=== PATIENT | male | born 1970 ===

== ENCOUNTER 2017-01-10 09:44 | Day surgery (SDC) | payer SELFPAY ==
[2016-05-20 11:52] VITALS: BMI 31.8
[2017-01-10] MEDS ORDERED: Midazolam 2 MG/2 ML VIAL ONE (12:17)
[2017-01-10] MEDS ORDERED: Propofol 10 mg/ml Inj (20 ML) ONE (12:18)
[2017-01-10] MEDS ORDERED: Lidocaine 2% MPF (5 ml) Inj ONE (12:23)
[2017-01-10] MEDS ORDERED: Lactated Ringer's 500 ML IV ONE (12:25)
[2017-01-10 13:00] VITALS: BP 121/69; PULSE 72; RESP 22; TEMP 98; O2SAT 96
== END 2017-01-10 13:00 | disposition home or self-care (01) ==
LOC: H.ENDO 09:44
PROVIDERS: ATTEND Internal Medicine Gastroenterology
DX: K21.9 Gastro-esophageal reflux disease without esophagitis (principal); K25.7 Chronic gastric ulcer without hemorrhage or perforation; K25.9 Gastric ulcer, unspecified as acute or chronic, without hemorrhage or perforation; K29.70 Gastritis, unspecified, without bleeding
CPT/HCPCS: 43239; 88305; J2250; J2704; J7120

== ENCOUNTER 2017-04-02 09:07 | Inpatient (IN) | payer MEDICAID, SELFPAY ==
[2017-04-02 09:16] VITALS: BMI 37.1
[2017-04-02] MEDS ORDERED: Albuterol-Ipratrop 3 mg / 0.5 (3 ml) UD ONE (09:20)
[2017-04-02] MEDS ORDERED: Albuterol-Ipratrop 3 mg / 0.5 (3 ml) UD IH STA (09:21)
[2017-04-02] MEDS ORDERED: Albuterol-Ipratrop 3 mg / 0.5 (3 ml) UD INH STA ×2 (09:21)
--- NOTE | 2017-04-02 09:22 | ED PDOC ---
HPI: General Adult Time Seen by Provider: 04/02/17 09:19 Chief Complaint (Provider): Dyspnea History Per: Patient History/Exam Limitations: no limitations Onset/Duration Of Symptoms: Days Have you had recent travel within the past 21 days to any of the following countries: [place], [place], [place] or [place]?: No Current Symptoms Are (Timing): Still Present Additional Complaint(s): Pt. with dyspnea last night that went away. Started again today morning. No chest pain, leg pain, fever, cough, congestion. No headaches. No weakness. Has had similar in 2x in the past from exertion and went away on its own. No numbness, tingles. No abd pain. No long distance travel or hormone tx. PCP: [facility] Past Medical History Reviewed: Historical Data, Nursing Documentation, Vital Signs Vital Signs: Last Vital Signs Temp 98 F 04/02/17 09:25 Pulse 127 H 04/02/17 09:30 Resp 25 H 04/02/17 09:45 BP 163/104 H 04/02/17 09:30 Pulse Ox 92 L 04/02/17 09:45 - Medical History PMH: Gastritis Denies: Chronic Kidney Disease - Surgical History Surgical History: Appendectomy, Cholecystectomy, Endoscopy - Family History Family History: States: Unknown Family Hx - Social History Current smoker - smoking cessation education provided: No Alcohol: None Drugs: Denies - Home Medications Home Medications: Ambulatory Orders Medication Instructions Recorded No Known Home Med 01/10/17 - Allergies Allergies/Adverse Reactions: Allergies Allergy/AdvReac Type Severity Reaction Status Date / Time naproxen AdvReac DIARRHEA Verified 04/02/17 09:25 Review of Systems ROS Statement: Except As Marked, All Systems Reviewed And Found Negative Respiratory: Positive for: Shortness of Breath, SOB with Exertion Physical Exam - Reviewed Nursing Documentation Reviewed: Yes Vital Signs Reviewed: Yes - Physical Exam Appears: Positive for: Uncomfortable Head Exam: Positive for: ATRAUMATIC, NORMAL INSPECTION, NORMOCEPHALIC Skin: Positive for: Normal Color, Warm, DRY Eye Exam: Positive for: EOMI, Normal appearance, PERRL ENT: Positive for: Normal ENT Inspection Neck: Positive for: Normal, Painless ROM Cardiovascular/Chest: Positive for: Chest Non Tender, Tachycardia. Negative for : Edema Respiratory: Positive for: Decreased Breath Sounds Gastrointestinal/Abdominal: Positive for: Normal Exam, Bowel Sounds, Soft. Negative for: Tenderness Back: Positive for: Normal Inspection. Negative for: L CVA Tenderness, R CVA Tenderness Extremity: Positive for: Normal ROM. Negative for: Tenderness, Pedal Edema Neurologic/Psych: Positive for: Alert, manager target II-XII, Oriented. Negative for: Motor/Sensory Deficits - Laboratory Results Result Diagrams: 04/02/17 09:30 04/02/17 09:30 - ECG ECG: Positive for: Interpreted By Me, Viewed By Me ECG Rhythm: Positive for: Normal QRS, Sinus Tachycardia, Nonspecific Changes - Radiology X-Ray: Interpreted by Me, Viewed By Me X-Ray Interpretation: Other (vascular congestion) - Progress ED Course And Treament: 1229: Stable. AAOx3. Breathing better. Will consider clinical CHF exacerbation. Will admit tele. Sats maintained on nasal cannula. Spoke with [facility] resident, will admit. - Critical Care Total Time (In Min): 30 Documented Critical Care: Time excludes all time spent performint seperately billable procedures Disposition - Clinical Impression Clinical Impression: CHF exacerbation - Patient ED Disposition Is Patient to be Admitted: Yes Counseled Patient/Family Regarding: Studies Performed, Diagnosis - Disposition Disposition Time: 12:31 Condition: FAIR - Pt Status Changed To: Hospital Disposition Of: Inpatient - Admit Certification Admit to Inpatient:: After my assessment, the patient will require hospitalization for at least two midnights. This is because of the severity of symptoms shown, intensity of services needed, and/or the medical risk in this patient being treated as an outpatient. - POA Present On Arrival: None
[2017-04-02] MEDS ORDERED: Sodium Chloride 0.9% 500 ML IV SCH (09:30)
[2017-04-02 09:35] LABS: ABG ALLEN TEST YES; ARTERIAL BLOOD GAS PH 7.42 (7.35-7.45); ARTERIAL BLOOD GAS PO2 67 mm/Hg (80-100)
[2017-04-02 09:39] LABS: BASO % 0.2 % (0.0-2.0); EOS # 0.1 K/uL (0.0-0.7); EOS % 0.6 % (0.0-4.0); HEMATOCRIT 50.3 % (35.0-51.0); LYMPH # 0.5 K/uL (1.0-4.3); LYMPH % 4.8 % (20.0-40.0); MEAN CELL VOLUME 85.4 fl (80.0-94.0); MEAN CORPUSCULAR HEMOGLOBIN 28.1 pg (27.0-31.0); MEAN CORPUSCULAR HGB CONC 32.9 g/dL (33.0-37.0); MEAN PLATELET VOLUME 8.7 fl (7.2-11.7); MONO # 0.7 K/uL (0.0-0.8); MONO % 7.8 % (0.0-10.0); NEUT # 8.3 K/uL (1.8-7.0); NEUT % 86.6 % (50.0-75.0); NRBC % 0.1 % (0.0-0.0); PLATELET COUNT 96 K/uL (130-400); RED CELL DISTRIBUTION WIDTH 15.8 % (11.5-14.5); WHITE BLOOD COUNT 9.5 K/uL (4.8-10.8)
[2017-04-02 10:12] LABS: PARTIAL THROMBOPLASTIN TIME 32.9 Seconds (25.6-37.1)
[2017-04-02 10:17] LABS: ALB/GLOB RATIO 1.5 (1.0-2.1); ALKALINE PHOSPHATASE 82 U/L (38-126); ALT/SGPT 109 U/L (21-72); AST/SGOT 44 U/L (17-59); BILIRUBIN,TOTAL 0.6 mg/dl (0.2-1.3); BLOOD UREA NITROGEN 16 mg/dl (9-20); CALCIUM 8.8 mg/dL (8.4-10.2); CARBON DIOXIDE 24 mmol/L (22-30); CHLORIDE 103 mmol/L (98-107); GFR AFRICAN-AMERICAN > 60; GLUCOSE,RANDOM 111 mg/dL (75-110); MAGNESIUM 2.1 MG/DL (1.6-2.3); PHOSPHOROUS 2.3 mg/dl (2.5-4.5); POTASSIUM 3.9 MMOL/L (3.6-5.0); SODIUM 134 mmol/l (132-148); TOTAL PROTEIN 7.8 G/DL (6.3-8.2)
[2017-04-02] MEDS ORDERED: Iodixanol 320 MG/ML 100 ML BOTTLE IV ONE (11:12)
[2017-04-02] MEDS ORDERED: Sodium Chloride 0.9% 50 ML IV ONE (11:13)
--- NOTE | 2017-04-02 11:31 | RAD ---
HISTORY: Sepsis Patient COMPARISON: No prior. FINDINGS: LUNGS: Prominence of pulmonary vasculature may be secondary to AP technique and/or pulmonary vascular congestion. PLEURA: No significant pleural effusion identified, no pneumothorax apparent. CARDIOVASCULAR: Normal. OSSEOUS STRUCTURES: No significant abnormalities. VISUALIZED UPPER ABDOMEN: Normal. OTHER FINDINGS: None. IMPRESSION: Prominence of the pulmonary vasculature may be secondary to AP technique and/or pulmonary vascular congestion. No focal consolidation or pleural effusion.
--- NOTE | 2017-04-02 12:25 | CT ---
PROCEDURE: CT Chest with contrast (Pulmonary Angiogram) HISTORY: chest pain COMPARISON: None available. TECHNIQUE: Axial computed tomography images were obtained of the chest in the pulmonary arterial phase of enhancement. Coronal and sagittal reformatted images were created and reviewed. Intravenous contrast dose: 90 mL Visipaque 320 Radiation dose: Total exam DLP = 412.7 mGy-cm. This CT exam was performed using one or more of the following dose reduction techniques: Automated exposure control, adjustment of the mA and/or kV according to patient size, and/or use of iterative reconstruction technique. FINDINGS: PULMONARY ARTERIES: Unremarkable. No pulmonary embolism. AORTA: No acute findings. No thoracic aortic aneurysm. Common origin of the brachiocephalic and left common carotid arteries. LUNGS: Focal areas of lingula, left upper right upper lobe subsegmental atelectasis. No nodule, mass or pulmonary consolidation. PLEURAL SPACES: Unremarkable. No effusion or pneuomothorax. HEART: Unremarkable. No cardiomegaly. No significant pericardial effusion. LYMPH NODES: No lymphadenopathy. BONES, CHEST WALL: Unremarkable. No fracture or destructive lesion OTHER FINDINGS: Unremarkable. IMPRESSION: Unremarkable CT pulmonary angiogram. No pulmonary embolus.
[2017-04-02 12:40] LABS: EOSINOPHIL 1 % (0-7); NEUTROPHIL 79 % (42-75); TOTAL CELLS COUNTED 100
[2017-04-02 12:41] LABS: LARGE PLATELETS PRESENT
--- NOTE | 2017-04-02 14:08 | CP.PCM.HP ---
<Marcy Figueroa - Last Filed: 04/02/17 17:40> History of Present Illness - History of Present Illness History of Present Illness: 46 yo ,m, PMhx/o Migraine, Obesity, GERD, Gastric Ulcer presents to ED c/o sudden SOB started today 1 am while sleeping at home associated with wheezing, chest tightness, headache and fever 101. Patient reports SOB on exertion started 3 months ago. Patient states that he is only able to walk 15 minutes and he has to stop due to SOB and also gets SOB when climbing stairs about 3 steps. He also reports productive cough with small amount yellowish expectoration for the last 2 months, sometimes white expectoration. Patient also reports being sleeping with 3 pillows for the last 3 years. He denies PND episodes before, orthopnea, pedal edema, palpitation, runny nose, nasal congestion, sick contact, recent travel, Hx/o CAD, angina. Patient reports gaining 40 lbs for the last months. Patient reports that consulted Dr for SOB and was prescribed a inhaler pump that he never used and sleep study test that he did not go to do. PMD: WVC PMHx: Migraine, Obesity, GERD, Gastric Ulcer Allergies: Naproxen "gastritis" MEds: denies Family Hx: Mom (Unspecified Thyroid Disease), Dad (Prostate CA), GranMom ( Unspecified CA, DM 2), Daughters x 2 (Healthy) PSurghx: Cholecystectomy PShx: +ETOH 12 beers occs on weekends x 22 years. Quit 1 year ago, former smoker for 20 years, 1 PPD/week. Quit 6 months ago. no rect drugs. Ed Course: low o2 sat 92, HR: 127 Labs: Ekg, sinus tachy, trop neg, probnp normal. PE: B/L lungs diminished breath sound. expiratory wheezing s/p meds. Imaging: CXR: Prominence of the pulmonary vaculature may be secondary to AP techinique and /or pulmonary vascular congestion. no focal consolidation of pleural effusion. CT chest: unremarkable CT pulmonary angiogram. no pulmmonary embolus. Meds: Duoneb,methylprednisone, iv fluids Present on Admission - Present on Admission Any Indicators Present on Admission: No History of DVT/PE: No History of Uncontrolled Diabetes: No Review of Systems - Constitutional Constitutional: As Per HPI - Cardiovascular Cardiovascular: As Per HPI - Respiratory Respiratory: As Per HPI, Dyspnea, Dyspnea on Exertion - Gastrointestinal Gastrointestinal: As Per HPI - Genitourinary Genitourinary: As Per HPI - Musculoskeletal Musculoskeletal: As Per HPI - Neurological Neurological: As Per HPI Past Patient History - Infectious Disease Hx of Infectious Diseases: None - Past Medical History & Family History Past Medical History?: No - Past Social History Alcohol: None Drugs: Denies - CARDIAC Hx Cardiac Disorders: No - PULMONARY Hx Respiratory Disorders: No - NEUROLOGICAL Hx Neurological Disorder: No - HEENT Hx HEENT Problems: No - RENAL Hx Chronic Kidney Disease: No - ENDOCRINE/METABOLIC Hx Endocrine Disorders: No - HEMATOLOGICAL/ONCOLOGICAL Hx Blood Disorders: No - INTEGUMENTARY Hx Dermatological Problems: No - MUSCULOSKELETAL/RHEUMATOLOGICAL Hx Falls: No - GASTROINTESTINAL Hx Gastritis: Yes - GENITOURINARY/GYNECOLOGICAL Hx Genitourinary Disorders: No - PSYCHIATRIC Hx Psychophysiologic Disorder: No Hx Substance Use: No - SURGICAL HISTORY Hx Appendectomy: Yes Hx Cholecystectomy: Yes - ANESTHESIA Hx Anesthesia: Yes Hx Anesthesia Reactions: No Hx Malignant Hyperthermia: No Meds Allergies/Adverse Reactions: Allergies Allergy/AdvReac Type Severity Reaction Status Date / Time naproxen AdvReac DIARRHEA Verified 04/02/17 09:25 Physical Exam - Constitutional Appears: In Acute Distress Additional comments: due to SOB - Head Exam Head Exam: ATRAUMATIC, NORMOCEPHALIC - Eye Exam Eye Exam: Normal appearance - Neck Exam Neck exam: Positive for: Normal Inspection - Respiratory Exam Respiratory Exam: Decreased Breath Sounds. absent: Wheezes Additional comments: on Bipap . B/L global diminished breath sounds with scattered expiratory wheezing b/l lungs s/p meds. - Cardiovascular Exam Cardiovascular Exam: Tachycardia, +S1, +S2 - GI/Abdominal Exam GI & Abdominal Exam: Normal Bowel Sounds, Soft. absent: Guarding - Extremities Exam Extremities exam: Positive for: normal inspection. Negative for: calf tenderness, pedal edema - Back Exam Back exam: NORMAL INSPECTION - Neurological Exam Neurological exam: Alert, Oriented x3 - Psychiatric Exam Psychiatric exam: Normal Affect - Skin Skin Exam: Intact Results - Vital Signs Recent Vital Signs: Last Vital Signs Temp 99.8 F H 04/02/17 12:27 Pulse 105 H 04/02/17 13:50 Resp 26 H 04/02/17 12:27 BP 138/85 04/02/17 12:49 Pulse Ox 96 04/02/17 12:27 - Labs Result Diagrams: 04/02/17 09:30 04/02/17 09:30 Labs: Laboratory Results - last 24 hr 04/02/17 04/02/17 04/02/17 09:26 09:30 09:30 WBC 9.5 RBC 5.89 Hgb 16.5 D Hct 50.3 MCV 85.4 D MCH 28.1 MCHC 32.9 L RDW 15.8 H Plt Count 96 L D MPV 8.7 Neut % (Auto) 86.6 H Lymph % (Auto) 4.8 L [place] % (Auto) 7.8 Eos % (Auto) 0.6 Baso % (Auto) 0.2 Neut # 8.3 H Lymph # 0.5 L [place] # 0.7 Eos # 0.1 Baso # 0.0 Neutrophils % (Manual) 79 H Band Neutrophils % 2 Lymphocytes % (Manual) 9 L Monocytes % (Manual) 9 Eosinophils % (Manual) 1 Platelet Estimate Slightly decreased L Large Platelets Present Hypochromasia (manual) Slight PT INR APTT pCO2 33 L pO2 67 L HCO3 23.0 ABG pH 7.42 ABG Total CO2 22.4 ABG O2 Saturation 97.1 ABG Base Excess -2.3 L Johnson Test Yes ABG Potassium 4.2 A-a O2 Difference 227.0 Sodium 142.0 134 Chloride 109.0 H 103 Glucose 122 H Lactate 0.9 FiO2 47.0 Potassium 3.9 Carbon Dioxide 24 Anion Gap 11 BUN 16 Creatinine 1.0 Est GFR ( Amer) > 60 Est GFR (Non-Af Amer) > 60 Random Glucose 111 H Calcium 8.8 Phosphorus 2.3 L Magnesium 2.1 Total Bilirubin 0.6 AST 44 ALT 109 H D Alkaline Phosphatase 82 Troponin I < 0.0120 NT-Pro-B Natriuret Pep 33.0 Total Protein 7.8 Albumin 4.7 Globulin 3.1 Albumin/Globulin Ratio 1.5 Arterial Blood Potassium 4.2 04/02/17 09:30 WBC RBC Hgb Hct MCV MCH MCHC RDW Plt Count MPV Neut % (Auto) Lymph % (Auto) [place] % (Auto) Eos % (Auto) Baso % (Auto) Neut # Lymph # [place] # Eos # Baso # Neutrophils % (Manual) Band Neutrophils % Lymphocytes % (Manual) Monocytes % (Manual) Eosinophils % (Manual) Platelet Estimate Large Platelets Hypochromasia (manual) PT 12.8 INR 1.2 APTT 32.9 pCO2 pO2 HCO3 ABG pH ABG Total CO2 ABG O2 Saturation ABG Base Excess Johnson Test ABG Potassium A-a O2 Difference Sodium Chloride Glucose Lactate FiO2 Potassium Carbon Dioxide Anion Gap BUN Creatinine Est GFR ( Amer) Est GFR (Non-Af Amer) Random Glucose Calcium Phosphorus Magnesium Total Bilirubin AST ALT Alkaline Phosphatase Troponin I NT-Pro-B Natriuret Pep Total Protein Albumin Globulin Albumin/Globulin Ratio Arterial Blood Potassium Assessment & Plan - Assessment and Plan (Free Text) Plan: 46 yo ,m, PMhx/o Migraine, Obesity, GERD, Gastric Ulcer admitted to ICU for respiratory distress secondary to new onset of COPD exacerbation vs CHF Assessment/Plan 1) respiratory distress secondary to new onset COPD -CXR: Prominence of the pulmonary vasculature may be secondary to AP technique and /or pulmonary vascular congestion. no focal consolidation of pleural effusion. CT chest: unremarkable CT pulmonary angiogram. no pulmmonary embolus. -Admit ICU -Bipap -NPO, iv fluids maintenance -s/p metylprednisone 125 mg iv -duoneb q 4h -Ceftriazone, Azythromycin -Echo stat -ICU consult appreciated -Cardiology consult suggested 2) COPD exacerbation -Admit ICU -Bipap -NPO -s/p metylprednisone 125 mg iv -duoneb q 4h -Ceftriazone, Azythromycin 3) Chest pain -to r/o ACS, PE -EKG: old myocardial infarction,sinus tachycardia -troponin x 1 neg -f/u troponin x 2 -ProBNP normal -d dimer high, f/u lower limbs venous US -repeat EKG in 8 hours. -TSH 4) Thromopcytopenia -plt 96 -f/u CBC, cmp 5) Prediabetes -chornic -hgb a1c 5.7 11/2016 6) DVT prophylaxis -SCD due to thrombocytopenia <Shoshana Nguyễn - Last Filed: 04/03/17 08:13> Results - Vital Signs Recent Vital Signs: Last Vital Signs Temp 98.3 F 04/03/17 06:00 Pulse 91 H 04/03/17 06:00 Resp 20 04/03/17 06:00 BP 156/93 H 04/03/17 06:00 Pulse Ox 96 04/03/17 06:00 - Labs Result Diagrams: 04/03/17 04:40 04/03/17 04:40 Labs: Laboratory Results - last 24 hr 04/02/17 04/02/17 04/02/17 09:26 09:30 09:30 WBC 9.5 RBC 5.89 Hgb 16.5 D Hct 50.3 MCV 85.4 D MCH 28.1 MCHC 32.9 L RDW 15.8 H Plt Count 96 L D MPV 8.7 Neut % (Auto) 86.6 H Lymph % (Auto) 4.8 L [place] % (Auto) 7.8 Eos % (Auto) 0.6 Baso % (Auto) 0.2 Neut # 8.3 H Lymph # 0.5 L [place] # 0.7 Eos # 0.1 Baso # 0.0 Neutrophils % (Manual) 79 H Band Neutrophils % 2 Lymphocytes % (Manual) 9 L Monocytes % (Manual) 9 Eosinophils % (Manual) 1 Platelet Estimate Slightly decreased L Large Platelets Present Hypochromasia (manual) Slight PT INR APTT D-Dimer, Quantitative pCO2 33 L pO2 67 L HCO3 23.0 ABG pH 7.42 ABG Total CO2 22.4 ABG O2 Saturation 97.1 ABG Base Excess -2.3 L Johnson Test Yes ABG Potassium 4.2 A-a O2 Difference 227.0 Sodium 142.0 134 Chloride 109.0 H 103 Glucose 122 H Lactate 0.9 FiO2 47.0 Potassium 3.9 Carbon Dioxide 24 Anion Gap 11 BUN 16 Creatinine 1.0 Est GFR ( Amer) > 60 Est GFR (Non-Af Amer) > 60 Random Glucose 111 H Calcium 8.8 Phosphorus 2.3 L Magnesium 2.1 Total Bilirubin 0.6 AST 44 ALT 109 H D Alkaline Phosphatase 82 Total Creatine Kinase Troponin I < 0.0120 C-React Prot High Sens NT-Pro-B Natriuret Pep 33.0 Total Protein 7.8 Albumin 4.7 Globulin 3.1 Albumin/Globulin Ratio 1.5 TSH 3rd Generation Arterial Blood Potassium 4.2 Urine Color Urine Clarity Urine pH Ur Specific [place] Urine Protein Urine Glucose (UA) Urine Ketones Urine Blood Urine Nitrate Urine Bilirubin Urine Urobilinogen Ur Leukocyte Esterase Urine RBC (Auto) Urine Microscopic WBC Ur Squamous Epith Cells 04/02/17 04/02/17 04/02/17 09:30 14:20 14:30 WBC RBC Hgb Hct MCV MCH MCHC RDW Plt Count MPV Neut % (Auto) Lymph % (Auto) [place] % (Auto) Eos % (Auto) Baso % (Auto) Neut # Lymph # [place] # Eos # Baso # Neutrophils % (Manual) Band Neutrophils % Lymphocytes % (Manual) Monocytes % (Manual) Eosinophils % (Manual) Platelet Estimate Large Platelets Hypochromasia (manual) PT 12.8 INR 1.2 APTT 32.9 D-Dimer, Quantitative 279 H pCO2 pO2 HCO3 ABG pH ABG Total CO2 ABG O2 Saturation ABG Base Excess Johnson Test ABG Potassium A-a O2 Difference Sodium Chloride Glucose Lactate FiO2 Potassium Carbon Dioxide Anion Gap BUN Creatinine Est GFR ( Amer) Est GFR (Non-Af Amer) Random Glucose Calcium Phosphorus Magnesium Total Bilirubin AST ALT Alkaline Phosphatase Total Creatine Kinase Troponin I C-React Prot High Sens NT-Pro-B Natriuret Pep Total Protein Albumin Globulin Albumin/Globulin Ratio TSH 3rd Generation Arterial Blood Potassium Urine Color Straw Urine Clarity Clear Urine pH 6.0 Ur Specific [place] 1.015 Urine Protein Negative Urine Glucose (UA) Neg Urine Ketones Trace Urine Blood Negative Urine Nitrate Negative Urine Bilirubin Negative Urine Urobilinogen 0.2-1.0 Ur Leukocyte Esterase Neg Urine RBC (Auto) < 1 Urine Microscopic WBC < 1 Ur Squamous Epith Cells < 1 04/02/17 04/02/17 04/02/17 14:30 14:30 22:32 WBC RBC Hgb Hct MCV MCH MCHC RDW Plt Count MPV Neut % (Auto) Lymph % (Auto) [place] % (Auto) Eos % (Auto) Baso % (Auto) Neut # Lymph # [place] # Eos # Baso # Neutrophils % (Manual) Band Neutrophils % Lymphocytes % (Manual) Monocytes % (Manual) Eosinophils % (Manual) Platelet Estimate Large Platelets Hypochromasia (manual) PT INR APTT D-Dimer, Quantitative pCO2 pO2 HCO3 ABG pH ABG Total CO2 ABG O2 Saturation ABG Base Excess Johnson Test ABG Potassium A-a O2 Difference Sodium Chloride Glucose Lactate FiO2 Potassium Carbon Dioxide Anion Gap BUN Creatinine Est GFR ( Amer) Est GFR (Non-Af Amer) Random Glucose Calcium Phosphorus Magnesium Total Bilirubin AST ALT Alkaline Phosphatase Total Creatine Kinase 204 H Troponin I < 0.0120 < 0.0120 C-React Prot High Sens > 15.00 H NT-Pro-B Natriuret Pep 68.4 Total Protein Albumin Globulin Albumin/Globulin Ratio TSH 3rd Generation Arterial Blood Potassium Urine Color Urine Clarity Urine pH Ur Specific [place] Urine Protein Urine Glucose (UA) Urine Ketones Urine Blood Urine Nitrate Urine Bilirubin Urine Urobilinogen Ur Leukocyte Esterase Urine RBC (Auto) Urine Microscopic WBC Ur Squamous Epith Cells 04/03/17 04/03/17 04:40 04:40 WBC 7.2 RBC 5.66 Hgb 15.8 Hct 48.4 MCV 85.5 MCH 28.0 MCHC 32.7 L RDW 16.0 H Plt Count 103 L MPV Neut % (Auto) Lymph % (Auto) [place] % (Auto) Eos % (Auto) Baso % (Auto) Neut # Lymph # [place] # Eos # Baso # Neutrophils % (Manual) Band Neutrophils % Lymphocytes % (Manual) Monocytes % (Manual) Eosinophils % (Manual) Platelet Estimate Large Platelets Hypochromasia (manual) PT INR APTT D-Dimer, Quantitative pCO2 pO2 HCO3 ABG pH ABG Total CO2 ABG O2 Saturation ABG Base Excess Johnson Test ABG Potassium A-a O2 Difference Sodium 142 Chloride 107 Glucose Lactate FiO2 Potassium 4.1 Carbon Dioxide 24 Anion Gap 15 BUN 18 Creatinine 0.8 Est GFR ( Amer) > 60 Est GFR (Non-Af Amer) > 60 Random Glucose 154 H Calcium 8.7 Phosphorus Magnesium Total Bilirubin 0.3 AST 52 ALT 114 H Alkaline Phosphatase 64 Total Creatine Kinase Troponin I < 0.0120 C-React Prot High Sens NT-Pro-B Natriuret Pep Total Protein 7.2 Albumin 4.2 Globulin 3.0 Albumin/Globulin Ratio 1.4 TSH 3rd Generation 0.23 L Arterial Blood Potassium Urine Color Urine Clarity Urine pH Ur Specific [place] Urine Protein Urine Glucose (UA) Urine Ketones Urine Blood Urine Nitrate Urine Bilirubin Urine Urobilinogen Ur Leukocyte Esterase Urine RBC (Auto) Urine Microscopic WBC Ur Squamous Epith Cells Attending/Attestation - Attestation Notes (Text): 04/03/17 08:12 ATTENDING NOTE ATTESTATION CHART REVIEWED. CASE DISCUSSED AT LENGTH WITH RESIDENT. PRESENTATION SUGGESTIVE OF COPD EXACERABATION. PATIENT ADMITTED TO ICU. STARTED ON SOLUMEDROL, ANTIBIOTICS, ALBUTEROL/ATROVENT NEBS. AGREE WITH PLAN.
[2017-04-02 14:33] LABS: RBC URINE < 1 /hpf (0-3); URINE BILIRUBIN NEGATIVE (NEGATIVE); URINE BLOOD NEGATIVE (NEGATIVE); URINE COLOR STRAW (YELLOW); URINE GLUCOSE (UA) NEG (Normal); URINE KETONE TRACE mg/dL (NEGATIVE); URINE LEUKOCYTE ESTERASE NEG Leu/uL (Negative); URINE PROTEIN NEGATIVE (NEGATIVE); URINE UROBILINOGEN 0.2-1.0 mg/dL (0.2-1.0); WBC URINE < 1 /hpf (0-5)
[2017-04-02] MEDS ORDERED: Albuterol-Ipratrop 3 mg / 0.5 (3 ml) UD INH PRN (14:51)
--- NOTE | 2017-04-02 14:58 | CP.PCM.CON ---
History of Present Illness - History of Present Illness History of Present Illness: 46 y/o male with pmx of smoking tobacco "[place]" for more than 10 years, with h /o obesity , pre-diabetes and working as a recycler forklift driver truck driver presents to [facility] with c/o difficulty breathing. Patient states that he has decreased exercise tolerance over last 6 to 9 months. Patient cannot lie flat and ususally uses 4 pillows. Patient denies taking any medications. Patient did not tell the medical team the name of his PMd. Patient takes aleve and tylenol PRN for back pain. Patient drives a truck. denies any recent Runny nose, fevers or cough. Review of Systems - Constitutional Constitutional: Snoring, Weight Gain. absent: Fatigue, Fever, Malaise, Night Sweats, Weight Loss - EENT Eyes: absent: Diplopia, Dry Eye, Irritation, Itchy Eyes - Cardiovascular Cardiovascular: Dyspnea, Dyspnea on Exertion, Paroxysmal Nocturnal Dyspnea. absent: Chest Pain - Respiratory Respiratory: Dyspnea, Dyspnea on Exertion, Chest Congestion. absent: Wheezing, Stridor, Excessive Mucous Production - Gastrointestinal Gastrointestinal: absent: Change in Bowel Habits, Constipation, Diarrhea, Hematochezia, Loose Stools, Melena - Hematologic/Lymphatic Hematologic: absent: Easy Bleeding, Easy Bruising Past Patient History - Infectious Disease Hx of Infectious Diseases: None - Past Medical History & Family History Past Medical History?: No - Past Social History Smoking Status: Children states patient smokes, but patient denies "i quit 6 months ago" Alcohol: None Drugs: Denies - CARDIAC Hx Cardiac Disorders: No - PULMONARY Hx Respiratory Disorders: No - NEUROLOGICAL Hx Neurological Disorder: No - HEENT Hx HEENT Problems: No - RENAL Hx Chronic Kidney Disease: No - ENDOCRINE/METABOLIC Hx Endocrine Disorders: No - HEMATOLOGICAL/ONCOLOGICAL Hx Blood Disorders: No - INTEGUMENTARY Hx Dermatological Problems: No - MUSCULOSKELETAL/RHEUMATOLOGICAL Hx Falls: No - GASTROINTESTINAL Hx Gastritis: Yes - GENITOURINARY/GYNECOLOGICAL Hx Genitourinary Disorders: No - PSYCHIATRIC Hx Psychophysiologic Disorder: No Hx Substance Use: No - SURGICAL HISTORY Hx Appendectomy: Yes Hx Cholecystectomy: Yes - ANESTHESIA Hx Anesthesia: Yes Hx Anesthesia Reactions: No Hx Malignant Hyperthermia: No Meds Allergies/Adverse Reactions: Allergies Allergy/AdvReac Type Severity Reaction Status Date / Time naproxen AdvReac DIARRHEA Verified 04/02/17 09:25 - Medications Medications: Current Medications Albuterol/Ipratropium (Duoneb 3 Mg/0.5 Mg (3 Ml) Ud) 3 ml INH RQ4 PRN PRN Reason: Shortness of Breath Aspirin (Aspirin) 325 mg PO DAILY [facility] Sodium Chloride (Sodium Chloride 0.9%) 500 mls @ 100 mls/hr IV .Q5H [facility] Physical Exam - Constitutional Appears: In Acute Distress - Head Exam Head Exam: ATRAUMATIC - Eye Exam Eye Exam: EOMI, Normal appearance. absent: Conjunctival injection - ENT Exam ENT Exam: Mucous Membranes Moist - Respiratory Exam Respiratory Exam: Clear to Auscultation Bilateral, Prolonged Expiratory Phase, Respiratory Distress. absent: Chest Wall Tenderness - Cardiovascular Exam Cardiovascular Exam: Tachycardia, REGULAR RHYTHM, +S1, +S2, Systolic Murmur - GI/Abdominal Exam GI & Abdominal Exam: Distended, Normal Bowel Sounds. absent: Tenderness Results - Vital Signs Recent Vital Signs: Last Vital Signs Temp 99.8 F H 04/02/17 14:32 Pulse 108 H 04/02/17 14:32 Resp 18 04/02/17 14:32 BP 136/78 04/02/17 14:32 Pulse Ox 95 04/02/17 14:32 - Labs Result Diagrams: 04/02/17 09:30 04/02/17 09:30 Labs: Laboratory Results - last 24 hr 04/02/17 04/02/17 04/02/17 09:26 09:30 09:30 WBC 9.5 RBC 5.89 Hgb 16.5 D Hct 50.3 MCV 85.4 D MCH 28.1 MCHC 32.9 L RDW 15.8 H Plt Count 96 L D MPV 8.7 Neut % (Auto) 86.6 H Lymph % (Auto) 4.8 L [place] % (Auto) 7.8 Eos % (Auto) 0.6 Baso % (Auto) 0.2 Neut # 8.3 H Lymph # 0.5 L [place] # 0.7 Eos # 0.1 Baso # 0.0 Neutrophils % (Manual) 79 H Band Neutrophils % 2 Lymphocytes % (Manual) 9 L Monocytes % (Manual) 9 Eosinophils % (Manual) 1 Platelet Estimate Slightly decreased L Large Platelets Present Hypochromasia (manual) Slight PT INR APTT D-Dimer, Quantitative pCO2 33 L pO2 67 L HCO3 23.0 ABG pH 7.42 ABG Total CO2 22.4 ABG O2 Saturation 97.1 ABG Base Excess -2.3 L Johnson Test Yes ABG Potassium 4.2 A-a O2 Difference 227.0 Sodium 142.0 134 Chloride 109.0 H 103 Glucose 122 H Lactate 0.9 FiO2 47.0 Potassium 3.9 Carbon Dioxide 24 Anion Gap 11 BUN 16 Creatinine 1.0 Est GFR ( Amer) > 60 Est GFR (Non-Af Amer) > 60 Random Glucose 111 H Calcium 8.8 Phosphorus 2.3 L Magnesium 2.1 Total Bilirubin 0.6 AST 44 ALT 109 H D Alkaline Phosphatase 82 Total Creatine Kinase Troponin I < 0.0120 NT-Pro-B Natriuret Pep 33.0 Total Protein 7.8 Albumin 4.7 Globulin 3.1 Albumin/Globulin Ratio 1.5 Arterial Blood Potassium 4.2 Urine Color Urine Clarity Urine pH Ur Specific [place] Urine Protein Urine Glucose (UA) Urine Ketones Urine Blood Urine Nitrate Urine Bilirubin Urine Urobilinogen Ur Leukocyte Esterase Urine RBC (Auto) Urine Microscopic WBC Ur Squamous Epith Cells 04/02/17 04/02/17 04/02/17 09:30 14:20 14:30 WBC RBC Hgb Hct MCV MCH MCHC RDW Plt Count MPV Neut % (Auto) Lymph % (Auto) [place] % (Auto) Eos % (Auto) Baso % (Auto) Neut # Lymph # [place] # Eos # Baso # Neutrophils % (Manual) Band Neutrophils % Lymphocytes % (Manual) Monocytes % (Manual) Eosinophils % (Manual) Platelet Estimate Large Platelets Hypochromasia (manual) PT 12.8 INR 1.2 APTT 32.9 D-Dimer, Quantitative 279 H pCO2 pO2 HCO3 ABG pH ABG Total CO2 ABG O2 Saturation ABG Base Excess Johnson Test ABG Potassium A-a O2 Difference Sodium Chloride Glucose Lactate FiO2 Potassium Carbon Dioxide Anion Gap BUN Creatinine Est GFR ( Amer) Est GFR (Non-Af Amer) Random Glucose Calcium Phosphorus Magnesium Total Bilirubin AST ALT Alkaline Phosphatase Total Creatine Kinase Troponin I NT-Pro-B Natriuret Pep Total Protein Albumin Globulin Albumin/Globulin Ratio Arterial Blood Potassium Urine Color Straw Urine Clarity Clear Urine pH 6.0 Ur Specific [place] 1.015 Urine Protein Negative Urine Glucose (UA) Neg Urine Ketones Trace Urine Blood Negative Urine Nitrate Negative Urine Bilirubin Negative Urine Urobilinogen 0.2-1.0 Ur Leukocyte Esterase Neg Urine RBC (Auto) < 1 Urine Microscopic WBC < 1 Ur Squamous Epith Cells < 1 04/02/17 14:30 WBC RBC Hgb Hct MCV MCH MCHC RDW Plt Count MPV Neut % (Auto) Lymph % (Auto) [place] % (Auto) Eos % (Auto) Baso % (Auto) Neut # Lymph # [place] # Eos # Baso # Neutrophils % (Manual) Band Neutrophils % Lymphocytes % (Manual) Monocytes % (Manual) Eosinophils % (Manual) Platelet Estimate Large Platelets Hypochromasia (manual) PT INR APTT D-Dimer, Quantitative pCO2 pO2 HCO3 ABG pH ABG Total CO2 ABG O2 Saturation ABG Base Excess Johnson Test ABG Potassium A-a O2 Difference Sodium Chloride Glucose Lactate FiO2 Potassium Carbon Dioxide Anion Gap BUN Creatinine Est GFR ( Amer) Est GFR (Non-Af Amer) Random Glucose Calcium Phosphorus Magnesium Total Bilirubin AST ALT Alkaline Phosphatase Total Creatine Kinase 204 H Troponin I NT-Pro-B Natriuret Pep Total Protein Albumin Globulin Albumin/Globulin Ratio Arterial Blood Potassium Urine Color Urine Clarity Urine pH Ur Specific [place] Urine Protein Urine Glucose (UA) Urine Ketones Urine Blood Urine Nitrate Urine Bilirubin Urine Urobilinogen Ur Leukocyte Esterase Urine RBC (Auto) Urine Microscopic WBC Ur Squamous Epith Cells - EKG Data Rate: Tachycardia Assessment & Plan - Assessment and Plan (Free Text) Assessment: -Dyspena: r/o ACS, given patient's typical history of PND, using 3 pillows, decrease exercise tolerance and h/o pre-diabetes, suspect ACS, obtain cardiology consult, start Echo, repeat CPK, trop and start asa, statin and heparin, check hs-CRP and d-dimer, repeat BNP (BNP low) -repeat EKG and all blood work, includign d-dimer. -Pulmonary HTN: as seen on CT chest, obtain echo to check for pulmonary artery pressure -smoking: at risk of COPD: wll benefit from peak flow at bedside, patient strongly advised to stop smoking, continue duo nebs PRN -h/o pre-diabetes: check HBA1C, BGm q6hrs, ISS novalog -DVT ppx : IV heparin -PUD rx with protonix -keep NPO -Patient needs peak flow cc time 35 minutes - Date & Time Date: 04/02/17 Time: 15:13
[2017-04-02] MEDS ORDERED: methylPREDNISolone 60 MG in Sodium Chloride 0.9% 50 ML IV SCH (15:00)
[2017-04-02] MEDS ORDERED: cefTRIAXone IV 1 gm in Dextros 50 ML IVPB SCH (15:45)
[2017-04-02] MEDS ORDERED: Azithromycin 500 MG in Sodium Chloride 0.9% 250 ML IVPB SCH (15:45)
[2017-04-03 05:22] LABS: HEMATOCRIT 48.4 % (35.0-51.0); MEAN CELL VOLUME 85.5 fl (80.0-94.0); MEAN CORPUSCULAR HGB CONC 32.7 g/dL (33.0-37.0); WHITE BLOOD COUNT 7.2 K/uL (4.8-10.8)
[2017-04-03 05:57] LABS: THYROID STIMULATING HORMONE 0.23 mIU/ML (0.46-4.68)
[2017-04-03 06:45] LABS: ALB/GLOB RATIO 1.4 (1.0-2.1); ALKALINE PHOSPHATASE 64 U/L (38-126); ALT/SGPT 114 U/L (21-72); AST/SGOT 52 U/L (17-59); BILIRUBIN,TOTAL 0.3 mg/dl (0.2-1.3); BLOOD UREA NITROGEN 18 mg/dl (9-20); CALCIUM 8.7 mg/dL (8.4-10.2); CARBON DIOXIDE 24 mmol/L (22-30); CHLORIDE 107 mmol/L (98-107); GFR AFRICAN-AMERICAN > 60; GLUCOSE,RANDOM 154 mg/dL (75-110); POTASSIUM 4.1 MMOL/L (3.6-5.0); SODIUM 142 mmol/l (132-148); TOTAL PROTEIN 7.2 G/DL (6.3-8.2)
--- NOTE | 2017-04-03 08:37 | CARD ---
APPROVED REPORT EKG Measurement Heart [id number] <Conclusion> Sinus tachycardia Nonspecific T wave abnormality Abnormal ECG
[2017-04-03] MEDS ORDERED: Alum-Mag Hydrox-Simethicone Susp (30 mL) PO PRN (08:47)
--- NOTE | 2017-04-03 10:12 | CP.PCM.PN ---
<[email or web address] - Last Filed: 04/03/17 15:16> Subjective - Date & Time of Evaluation Date of Evaluation: 04/03/17 Time of Evaluation: 09:30 - Subjective Subjective: Pt seen and examined at bedside. Pt was sitting up in bed, eating breakfast. He was able to speak in full sentences, but was mildly short of breath while speaking. No new complaints overnight. Objective - Vital Signs/Intake and Output Vital Signs (last 24 hours): Temp Pulse Resp BP Pulse Ox 97.8 F 86 24 154/103 H 97 04/03/17 08:00 04/03/17 08:00 04/03/17 08:00 04/03/17 08:00 04/03/17 08:00 Intake and Output: 04/03/17 04/03/17 06:59 18:59 Intake Total 1350 120 Output Total 600 Balance 750 120 - Medications Medications: Current Medications Acetaminophen (Tylenol 325mg Tab) 650 mg PO Q6 PRN PRN Reason: Pain, moderate (4-7) Last Admin: 04/02/17 20:40 Dose: 650 mg Al Hydrox/Mg Hydrox/Simethicone (Maalox Plus 30 Ml) 30 ml PO Q6 PRN PRN Reason: Indigestion / Heartburn Albuterol/Ipratropium (Duoneb 3 Mg/0.5 Mg (3 Ml) Ud) 3 ml INH Q6H [facility] Aspirin (Aspirin) 325 mg PO DAILY [facility] Sodium Chloride (Sodium Chloride 0.9%) 500 mls @ 100 mls/hr IV .Q5H [facility] Last Admin: 04/02/17 20:42 Dose: 100 mls/hr Azithromycin 500 mg/ Sodium (Chloride) 250 mls @ 250 mls/hr IVPB DAILY [facility] PRN Reason: Protocol Last Admin: 04/02/17 19:01 Dose: 250 mls/hr Ceftriaxone Sodium 1 gm/ (Sodium Chloride) 100 mls @ 100 mls/hr IVPB DAILY [facility] PRN Reason: Protocol Last Admin: 04/02/17 20:05 Dose: 100 mls/hr Methylprednisolone (Solu-Medrol) 60 mg IV Q8H [facility] Last Admin: 04/03/17 06:28 Dose: 60 mg Pantoprazole Sodium (Protonix Ec Tab) 40 mg PO DAILY [facility] - Labs Labs: 04/03/17 04:40 04/03/17 04:40 PT 12.8 Seconds (9.8-13.1) 04/02/17 09:30 INR 1.2 (0.9-1.2) 04/02/17 09:30 APTT 32.9 Seconds (25.6-37.1) 04/02/17 09:30 - Head Exam Head Exam: ATRAUMATIC - Eye Exam Eye Exam: Normal appearance - ENT Exam ENT Exam: Mucous Membranes Moist - Respiratory Exam Respiratory Exam: Decreased Breath Sounds, Rhonchi, Wheezes Additional comments: scatted inspiratory and expiratory wheezes bilaterally, moreso in posterior lower lobes scattered rhonchi - Cardiovascular Exam Cardiovascular Exam: +S1, +S2 - GI/Abdominal Exam GI & Abdominal Exam: Soft, Normal Bowel Sounds - Extremities Exam Extremities Exam: Normal Capillary Refill. absent: Calf Tenderness, Pedal Edema - Back Exam Back Exam: NORMAL INSPECTION - Neurological Exam Neurological Exam: Alert, CN II-XII Intact, Oriented x3 - Psychiatric Exam Psychiatric exam: Normal Mood - Skin Skin Exam: Dry, Warm Assessment and Plan - Assessment and Plan (Free Text) Assessment: 46 yo M with pmh migraine, obesity, GERD, gastric ulcer, admitted for respiratory distress secondary to new onset of COPD exacerbation vs CHF. Plan: 1) Respiratory distress likely secondary to COPD exacerbation - Likely new onset COPD - Bipap - Ceftriazone 1gm IVPB daily - Azythromycin 500 mg IVPB daily - Methylprednisone 60 mg IV Q12 hours; received 125 mg IV methylprednisone in ED - Duoneb Q6H - ICU consult appreciated - Cardiology consult - Pulmonology consult 2) COPD exacerbation -see #1 3) Chest Pain - R/o ACS, PE - Troponin neg x4 - CXR: Prominence of the pulmonary vasculature may be secondary to AP technique and /or pulmonary vascular congestion. no focal consolidation of pleural effusion. - CT chest: unremarkable CT pulmonary angiogram. No pulmonary embolus. - EKG: old myocardial infarction,sinus tachycardia - Echocardiogram pending - ProBNP normal - D-dimer elevated, f/u lower limbs venous US 4) Thrombocytopenia - Plt 103, was 96 on admission - F/u CBC 5) Prediabetes - HbA1c 5.7 in 11/2016 6) DVT prophylaxis -SCD due to thrombocytopenia <Shoshana Nguyễn - Last Filed: 04/04/17 08:13> Objective - Vital Signs/Intake and Output Vital Signs (last 24 hours): Temp Pulse Resp BP Pulse Ox 98.1 F 68 18 109/72 98 04/04/17 05:17 04/04/17 05:17 04/04/17 05:17 04/04/17 05:17 04/04/17 05:17 - Medications Medications: Current Medications Acetaminophen (Tylenol 325mg Tab) 650 mg PO Q6 PRN PRN Reason: Pain, moderate (4-7) Last Admin: 04/02/17 20:40 Dose: 650 mg Al Hydrox/Mg Hydrox/Simethicone (Maalox Plus 30 Ml) 30 ml PO Q6 PRN PRN Reason: Indigestion / Heartburn Albuterol/Ipratropium (Duoneb 3 Mg/0.5 Mg (3 Ml) Ud) 3 ml INH Q6H [facility] Last Admin: 04/04/17 07:57 Dose: 3 ml Aspirin (Aspirin) 325 mg PO DAILY [facility] Last Admin: 04/03/17 10:39 Dose: 325 mg Azithromycin 500 mg/ Sodium (Chloride) 250 mls @ 250 mls/hr IVPB DAILY [facility] PRN Reason: Protocol Last Admin: 04/02/17 19:01 Dose: 250 mls/hr Ceftriaxone Sodium 1 gm/ (Sodium Chloride) 100 mls @ 100 mls/hr IVPB DAILY [facility] PRN Reason: Protocol Last Admin: 04/02/17 20:05 Dose: 100 mls/hr Methylprednisolone (Solu-Medrol) 60 mg IV Q12H [facility] Last Admin: 04/03/17 23:08 Dose: 60 mg Pantoprazole Sodium (Protonix Ec Tab) 40 mg PO DAILY [facility] Last Admin: 04/03/17 10:39 Dose: 40 mg - Labs Labs: 04/04/17 04:20 04/04/17 04:20 PT 12.8 Seconds (9.8-13.1) 04/02/17 09:30 INR 1.2 (0.9-1.2) 04/02/17 09:30 APTT 32.9 Seconds (25.6-37.1) 04/02/17 09:30 Attending/Attestation - Attestation I have personally seen and examined this patient.: Yes I have fully participated in the care of the patient.: Yes I have reviewed all pertinent clinical information, including history, physical exam and plan: Yes Notes (Text): 04/04/17 08:12 Patient seen and examined. Case discussed with resident. Agree with findings and plan.
--- NOTE | 2017-04-03 10:16 | CP.PCM.CON ---
History of Present Illness - History of Present Illness History of Present Illness: This 46-year- old man came into the emergency room after experiencing worsening shortness of breath over last 9 months. He reports that approximately one year back he used to be extremely active and could walk a few miles without any difficulty. In July of this year the patient noticed getting himself out of breath while exercising to an exercise video. On October 11 after seeing the night fireworks he walked approximately a mile to mile and a half and found himself extremely short of breath. He continued to have this sensation of worsening dyspnea on exertion until a few days back found himself short of breath simply walking around in the house or taking a shower. He also found it difficult to breathe lying in bed until he sat out of bed in a chair or propped himself up on 4 pillows. He also admits to having quit smoking in July of this year but also reported that he gained 40 pounds in last 8 months. He is nontender diabetic or hypertensive and has had no prior history of cardiac issues. There is no significant past of family history. 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 Physical examination shows an extremely anxious man lying in bed in intensive care unit and was recently given a broncho-dilator treatment consisting of an alkaline phosphatase sympathetic drug. He was mildly tachycardic with a sinus rate of 102 bpm and regular and a blood pressure of 144/90 mmHg. His jugular venous pressure was not elevated and there was no edema over his lower extremities. His extremities were warm and in nailbeds were pink. There was no central or peripheral cyanosis. There was no clubbing. There were no carotid bruits. His pedal pulses were well felt. The apex was not palpable. The first and second heart sounds were normal. There was no murmur, no gallop and no rales. Abdomen was soft liver and spleen are not palpable. His electro-cardiogram showed sinus rhythm with nonspecific ST changes but otherwise normal pattern. His lab tests showed a normal hemoglobin and hematocrit and normal BUN/creatinine and electrolytes. 2 sets of cardiac enzymes were negative for any evidence of myocyte injury. His proBNP was normal. Chest x-ray did not reveal anything significant. Impression: Severe effort intolerance (suspect pulmonary insufficiency). Congestive cardiac failure or other cardiac issues should be ruled out. There is no evidence of acute coronary syndrome given his history of gradually worsening effort tolerance and absence of ST-T abnormalities on the electrocardiogram as well as normal troponin levels. The patient will undergo an echocardiogram to evaluate his left ventricular systolic function tomorrow. I have discussed his case with the residents and a pulmonary evaluation is being arranged. Past Patient History - Infectious Disease Hx of Infectious Diseases: None - Past Medical History & Family History Past Medical History?: No - Past Social History Alcohol: None Drugs: Denies - CARDIAC Hx Cardiac Disorders: No - PULMONARY Hx Respiratory Disorders: No - NEUROLOGICAL Hx Neurological Disorder: No - HEENT Hx HEENT Problems: No - RENAL Hx Chronic Kidney Disease: No - ENDOCRINE/METABOLIC Hx Endocrine Disorders: No - HEMATOLOGICAL/ONCOLOGICAL Hx Blood Disorders: No - INTEGUMENTARY Hx Dermatological Problems: No - MUSCULOSKELETAL/RHEUMATOLOGICAL Hx Falls: No - GASTROINTESTINAL Hx Gastritis: Yes - GENITOURINARY/GYNECOLOGICAL Hx Genitourinary Disorders: No - PSYCHIATRIC Hx Psychophysiologic Disorder: No Hx Substance Use: No - SURGICAL HISTORY Hx Appendectomy: Yes Hx Cholecystectomy: Yes - ANESTHESIA Hx Anesthesia: Yes Hx Anesthesia Reactions: No Hx Malignant Hyperthermia: No Meds Allergies/Adverse Reactions: Allergies Allergy/AdvReac Type Severity Reaction Status Date / Time naproxen AdvReac DIARRHEA Verified 04/02/17 09:25 - Medications Medications: Current Medications Acetaminophen (Tylenol 325mg Tab) 650 mg PO Q6 PRN PRN Reason: Pain, moderate (4-7) Last Admin: 04/02/17 20:40 Dose: 650 mg Al Hydrox/Mg Hydrox/Simethicone (Maalox Plus 30 Ml) 30 ml PO Q6 PRN PRN Reason: Indigestion / Heartburn Albuterol/Ipratropium (Duoneb 3 Mg/0.5 Mg (3 Ml) Ud) 3 ml INH Q6H [facility] Aspirin (Aspirin) 325 mg PO DAILY [facility] Sodium Chloride (Sodium Chloride 0.9%) 500 mls @ 100 mls/hr IV .Q5H [facility] Last Admin: 04/02/17 20:42 Dose: 100 mls/hr Azithromycin 500 mg/ Sodium (Chloride) 250 mls @ 250 mls/hr IVPB DAILY [facility] PRN Reason: Protocol Last Admin: 04/02/17 19:01 Dose: 250 mls/hr Ceftriaxone Sodium 1 gm/ (Sodium Chloride) 100 mls @ 100 mls/hr IVPB DAILY [facility] PRN Reason: Protocol Last Admin: 04/02/17 20:05 Dose: 100 mls/hr Methylprednisolone (Solu-Medrol) 60 mg IV Q8H [facility] Last Admin: 04/03/17 06:28 Dose: 60 mg Pantoprazole Sodium (Protonix Ec Tab) 40 mg PO DAILY [facility] Results - Vital Signs Recent Vital Signs: Last Vital Signs Temp 97.8 F 04/03/17 08:00 Pulse 86 04/03/17 08:00 Resp 24 04/03/17 08:00 BP 154/103 H 04/03/17 08:00 Pulse Ox 97 04/03/17 08:00 - Labs Result Diagrams: 04/03/17 04:40 04/03/17 04:40 Labs: Laboratory Results - last 24 hr 04/02/17 04/02/17 04/02/17 09:30 09:30 09:30 WBC RBC Hgb Hct MCV MCH MCHC RDW Plt Count Neutrophils % (Manual) 79 H Band Neutrophils % 2 Lymphocytes % (Manual) 9 L Monocytes % (Manual) 9 Eosinophils % (Manual) 1 Platelet Estimate Slightly decreased L Large Platelets Present Hypochromasia (manual) Slight PT 12.8 INR 1.2 APTT 32.9 D-Dimer, Quantitative Sodium 134 Potassium 3.9 Chloride 103 Carbon Dioxide 24 Anion Gap 11 BUN 16 Creatinine 1.0 Est GFR ( Amer) > 60 Est GFR (Non-Af Amer) > 60 Random Glucose 111 H Calcium 8.8 Phosphorus 2.3 L Magnesium 2.1 Total Bilirubin 0.6 AST 44 ALT 109 H D Alkaline Phosphatase 82 Total Creatine Kinase Troponin I < 0.0120 C-React Prot High Sens NT-Pro-B Natriuret Pep Total Protein 7.8 Albumin 4.7 Globulin 3.1 Albumin/Globulin Ratio 1.5 TSH 3rd Generation Urine Color Urine Clarity Urine pH Ur Specific [place] Urine Protein Urine Glucose (UA) Urine Ketones Urine Blood Urine Nitrate Urine Bilirubin Urine Urobilinogen Ur Leukocyte Esterase Urine RBC (Auto) Urine Microscopic WBC Ur Squamous Epith Cells 04/02/17 04/02/17 04/02/17 14:20 14:30 14:30 WBC RBC Hgb Hct MCV MCH MCHC RDW Plt Count Neutrophils % (Manual) Band Neutrophils % Lymphocytes % (Manual) Monocytes % (Manual) Eosinophils % (Manual) Platelet Estimate Large Platelets Hypochromasia (manual) PT INR APTT D-Dimer, Quantitative 279 H Sodium Potassium Chloride Carbon Dioxide Anion Gap BUN Creatinine Est GFR ( Amer) Est GFR (Non-Af Amer) Random Glucose Calcium Phosphorus Magnesium Total Bilirubin AST ALT Alkaline Phosphatase Total Creatine Kinase 204 H Troponin I < 0.0120 C-React Prot High Sens NT-Pro-B Natriuret Pep 68.4 Total Protein Albumin Globulin Albumin/Globulin Ratio TSH 3rd Generation Urine Color Straw Urine Clarity Clear Urine pH 6.0 Ur Specific [place] 1.015 Urine Protein Negative Urine Glucose (UA) Neg Urine Ketones Trace Urine Blood Negative Urine Nitrate Negative Urine Bilirubin Negative Urine Urobilinogen 0.2-1.0 Ur Leukocyte Esterase Neg Urine RBC (Auto) < 1 Urine Microscopic WBC < 1 Ur Squamous Epith Cells < 1 04/02/17 04/02/17 04/03/17 14:30 22:32 04:40 WBC RBC Hgb Hct MCV MCH MCHC RDW Plt Count Neutrophils % (Manual) Band Neutrophils % Lymphocytes % (Manual) Monocytes % (Manual) Eosinophils % (Manual) Platelet Estimate Large Platelets Hypochromasia (manual) PT INR APTT D-Dimer, Quantitative Sodium 142 Potassium 4.1 Chloride 107 Carbon Dioxide 24 Anion Gap 15 BUN 18 Creatinine 0.8 Est GFR ( Amer) > 60 Est GFR (Non-Af Amer) > 60 Random Glucose 154 H Calcium 8.7 Phosphorus Magnesium Total Bilirubin 0.3 AST 52 ALT 114 H Alkaline Phosphatase 64 Total Creatine Kinase Troponin I < 0.0120 < 0.0120 C-React Prot High Sens > 15.00 H NT-Pro-B Natriuret Pep Total Protein 7.2 Albumin 4.2 Globulin 3.0 Albumin/Globulin Ratio 1.4 TSH 3rd Generation 0.23 L Urine Color Urine Clarity Urine pH Ur Specific [place] Urine Protein Urine Glucose (UA) Urine Ketones Urine Blood Urine Nitrate Urine Bilirubin Urine Urobilinogen Ur Leukocyte Esterase Urine RBC (Auto) Urine Microscopic WBC Ur Squamous Epith Cells 04/03/17 04:40 WBC 7.2 RBC 5.66 Hgb 15.8 Hct 48.4 MCV 85.5 MCH 28.0 MCHC 32.7 L RDW 16.0 H Plt Count 103 L Neutrophils % (Manual) Band Neutrophils % Lymphocytes % (Manual) Monocytes % (Manual) Eosinophils % (Manual) Platelet Estimate Large Platelets Hypochromasia (manual) PT INR APTT D-Dimer, Quantitative Sodium Potassium Chloride Carbon Dioxide Anion Gap BUN Creatinine Est GFR ( Amer) Est GFR (Non-Af Amer) Random Glucose Calcium Phosphorus Magnesium Total Bilirubin AST ALT Alkaline Phosphatase Total Creatine Kinase Troponin I C-React Prot High Sens NT-Pro-B Natriuret Pep Total Protein Albumin Globulin Albumin/Globulin Ratio TSH 3rd Generation Urine Color Urine Clarity Urine pH Ur Specific [place] Urine Protein Urine Glucose (UA) Urine Ketones Urine Blood Urine Nitrate Urine Bilirubin Urine Urobilinogen Ur Leukocyte Esterase Urine RBC (Auto) Urine Microscopic WBC Ur Squamous Epith Cells
[2017-04-03] MEDS ORDERED: Sodium Chloride 3% for Inhalation 4 ML VIAL.NEB IH PRN (10:25)
[2017-04-03] MEDS ORDERED: methylPREDNISolone 60 MG in Sodium Chloride 0.9% 50 ML IVPB SCH (10:30)
[2017-04-03] MEDS: Pantoprazole 40 mg EC Tab PO SCH (10:39)
--- NOTE | 2017-04-03 10:54 | CP.CCUPN ---
CCU Subjective - Physician Review Subjective (Free Text): Patient seen and examined at bedside. Patient has no specific complaints. (+) gastric reflux, no SOB, tolerating nasal canula 04/03/17 10:50 CCU Objective - Vital Signs / Intake & Output Vital Signs (Last 4 hours): Vital Signs Temp Pulse Resp BP Pulse Ox 04/03/17 10:00 93 H 21 133/86 93 L 04/03/17 08:00 97.8 F 86 24 154/103 H 97 Intake and Output (Last 8hrs): Intake & Output 04/02/17 04/03/17 04/03/17 22:59 06:59 14:59 Intake Total 1350 240 Output Total 600 Balance 750 240 Weight 235 lb Intake: IV 700 Intake, Piggyback 350 Oral 300 240 Output: Urine 600 Urine, Voided 600 Other: # Voids Urine, Voided 1 - Physical Exam Physical Exam Limitations: Negative for: Altered Mental Status Head: Positive for: Atraumatic, Normocephalic Extroacular Muscles: Positive for: EOMI Mouth: Positive for: Moist Mucous Membranes Neck: Positive for: Normal Range of Motion Respiratory/Chest: Positive for: Clear to Auscultation, Good Air Exchange. Negative for: Respiratory Distress, Accessory Muscle Use Cardiovascular: Positive for: Regular Rate and Rhythm, Normal S1, S2 Abdomen: Positive for: Normal Bowel Sounds. Negative for: Tenderness Lower Extremity: Positive for: Normal Inspection Neurological: Positive for: GCS=15 Psychiatric: Positive for: Alert, Oriented x 3, Normal Insight, Normal Concentration - Medications Active Medications: Active Medications Generic Name Dose Route Start Last Admin Trade Name Freq PRN Reason Stop Dose Admin Acetaminophen 650 mg 04/02/17 16:44 04/02/17 20:40 Tylenol 325mg Tab PO 650 mg Q6 PRN Administration Pain, moderate (4-7) Al Hydrox/Mg Hydrox/Simethicone 30 ml 04/03/17 08:47 Maalox Plus 30 Ml PO Q6 PRN Indigestion / Heartburn Albuterol/Ipratropium 3 ml 04/03/17 08:30 Duoneb 3 Mg/0.5 Mg (3 Ml) Ud INH Q6H B[facility] Aspirin 325 mg 04/03/17 09:00 04/03/17 10:39 Aspirin PO 325 mg DAILY BANDAR Administration Azithromycin 500 mg/ Sodium 250 mls @ 250 mls/hr 04/02/17 15:45 04/02/17 19: 01 Chloride IVPB 250 mls/hr DAILY B[facility]AR Administration Protocol Ceftriaxone Sodium 1 gm/ 100 mls @ 100 mls/hr 04/02/17 18:45 04/02/17 20:05 Sodium Chloride IVPB 100 mls/hr DAILY B[facility] Administration Protocol Methylprednisolone 60 mg 04/03/17 11:00 Solu-Medrol IV Q12H B[facility]AR Pantoprazole Sodium 40 mg 04/03/17 09:00 04/03/17 10:39 Protonix Ec Tab PO 40 mg DAILY BANDAR Administration - Patient Studies Lab Studies: Microbiology Studies 04/02/17 09:15 Blood Culture - Preliminary Blood NO GROWTH AFTER 24 HOURS 04/02/17 09:30 Blood Culture - Preliminary Blood NO GROWTH AFTER 24 HOURS Lab Studies 04/03/17 04/03/17 04/02/17 Range/Units 04:40 04:40 22:32 WBC 7.2 (4.8-10.8) K/uL RBC 5.66 (4.40-5.90) Mil/uL Hgb 15.8 (12.0-18.0) g/dL Hct 48.4 (35.0-51.0) % MCV 85.5 (80.0-94.0) fl MCH 28.0 (27.0-31.0) pg MCHC 32.7 L (33.0-37.0) g/dL RDW 16.0 H (11.5-14.5) % Plt Count 103 L (130-400) K/uL Neutrophils % (Manual) (42-75) % Band Neutrophils % (0-2) % Lymphocytes % (Manual) (20-50) % Monocytes % (Manual) (0-10) % Eosinophils % (Manual) (0-7) % Platelet Estimate (NORMAL) Large Platelets Hypochromasia (manual) D-Dimer, Quantitative (0-230) ng/mlDDU Sodium 142 (132-148) mmol/l Potassium 4.1 (3.6-5.0) MMOL/L Chloride 107 (98-107) mmol/L Carbon Dioxide 24 (22-30) mmol/L Anion Gap 15 (10-20) BUN 18 (9-20) mg/dl Creatinine 0.8 (0.8-1.5) mg/dl Est GFR ( Amer) > 60 Est GFR (Non-Af Amer) > 60 Random Glucose 154 H (75-110) mg/dL Calcium 8.7 (8.4-10.2) mg/dL Total Bilirubin 0.3 (0.2-1.3) mg/dl AST 52 (17-59) U/L ALT 114 H (21-72) U/L Alkaline Phosphatase 64 (38-126) U/L Total Creatine Kinase (55-170) U/L Troponin I < 0.0120 < 0.0120 (0.00-0.120) ng/mL C-React Prot High Sens (1.00-3.00) mg/L NT-Pro-B Natriuret Pep (0-450) pg/ml Total Protein 7.2 (6.3-8.2) G/DL Albumin 4.2 (3.5-5.0) g/dL Globulin 3.0 (2.2-3.9) gm/dL Albumin/Globulin Ratio 1.4 (1.0-2.1) TSH 3rd Generation 0.23 L (0.46-4.68) mIU/ML Urine Color (YELLOW) Urine Clarity (Clear) Urine pH (5.0-8.0) Ur Specific [place] (1.003-1.030) Urine Protein (NEGATIVE) mg/dL Urine Glucose (UA) (Normal) mg/dL Urine Ketones (NEGATIVE) mg/dL Urine Blood (NEGATIVE) Urine Nitrate (NEGATIVE) Urine Bilirubin (NEGATIVE) Urine Urobilinogen (0.2-1.0) mg/dL Ur Leukocyte Esterase (Negative) Hilton/uL Urine RBC (Auto) (0-3) /hpf Urine Microscopic WBC (0-5) /hpf Ur Squamous Epith Cells (0-5) /hpf 04/02/17 04/02/17 04/02/17 Range/Units 14:30 14:30 14:30 WBC (4.8-10.8) K/uL RBC (4.40-5.90) Mil/uL Hgb (12.0-18.0) g/dL Hct (35.0-51.0) % MCV (80.0-94.0) fl MCH (27.0-31.0) pg MCHC (33.0-37.0) g/dL RDW (11.5-14.5) % Plt Count (130-400) K/uL Neutrophils % (Manual) (42-75) % Band Neutrophils % (0-2) % Lymphocytes % (Manual) (20-50) % Monocytes % (Manual) (0-10) % Eosinophils % (Manual) (0-7) % Platelet Estimate (NORMAL) Large Platelets Hypochromasia (manual) D-Dimer, Quantitative 279 H (0-230) ng/mlDDU Sodium (132-148) mmol/l Potassium (3.6-5.0) MMOL/L Chloride (98-107) mmol/L Carbon Dioxide (22-30) mmol/L Anion Gap (10-20) BUN (9-20) mg/dl Creatinine (0.8-1.5) mg/dl Est GFR ( Amer) Est GFR (Non-Af Amer) Random Glucose (75-110) mg/dL Calcium (8.4-10.2) mg/dL Total Bilirubin (0.2-1.3) mg/dl AST (17-59) U/L ALT (21-72) U/L Alkaline Phosphatase (38-126) U/L Total Creatine Kinase 204 H (55-170) U/L Troponin I < 0.0120 (0.00-0.120) ng/mL C-React Prot High Sens > 15.00 H (1.00-3.00) mg/L NT-Pro-B Natriuret Pep 68.4 (0-450) pg/ml Total Protein (6.3-8.2) G/DL Albumin (3.5-5.0) g/dL Globulin (2.2-3.9) gm/dL Albumin/Globulin Ratio (1.0-2.1) TSH 3rd Generation (0.46-4.68) mIU/ML Urine Color (YELLOW) Urine Clarity (Clear) Urine pH (5.0-8.0) Ur Specific [place] (1.003-1.030) Urine Protein (NEGATIVE) mg/dL Urine Glucose (UA) (Normal) mg/dL Urine Ketones (NEGATIVE) mg/dL Urine Blood (NEGATIVE) Urine Nitrate (NEGATIVE) Urine Bilirubin (NEGATIVE) Urine Urobilinogen (0.2-1.0) mg/dL Ur Leukocyte Esterase (Negative) Hilton/uL Urine RBC (Auto) (0-3) /hpf Urine Microscopic WBC (0-5) /hpf Ur Squamous Epith Cells (0-5) /hpf 04/02/17 04/02/17 Range/Units 14:20 09:30 WBC (4.8-10.8) K/uL RBC (4.40-5.90) Mil/uL Hgb (12.0-18.0) g/dL Hct (35.0-51.0) % MCV (80.0-94.0) fl MCH (27.0-31.0) pg MCHC (33.0-37.0) g/dL RDW (11.5-14.5) % Plt Count (130-400) K/uL Neutrophils % (Manual) 79 H (42-75) % Band Neutrophils % 2 (0-2) % Lymphocytes % (Manual) 9 L (20-50) % Monocytes % (Manual) 9 (0-10) % Eosinophils % (Manual) 1 (0-7) % Platelet Estimate Slightly decreased L (NORMAL) Large Platelets Present Hypochromasia (manual) Slight D-Dimer, Quantitative (0-230) ng/mlDDU Sodium (132-148) mmol/l Potassium (3.6-5.0) MMOL/L Chloride (98-107) mmol/L Carbon Dioxide (22-30) mmol/L Anion Gap (10-20) BUN (9-20) mg/dl Creatinine (0.8-1.5) mg/dl Est GFR ( Amer) Est GFR (Non-Af Amer) Random Glucose (75-110) mg/dL Calcium (8.4-10.2) mg/dL Total Bilirubin (0.2-1.3) mg/dl AST (17-59) U/L ALT (21-72) U/L Alkaline Phosphatase (38-126) U/L Total Creatine Kinase (55-170) U/L Troponin I (0.00-0.120) ng/mL C-React Prot High Sens (1.00-3.00) mg/L NT-Pro-B Natriuret Pep (0-450) pg/ml Total Protein (6.3-8.2) G/DL Albumin (3.5-5.0) g/dL Globulin (2.2-3.9) gm/dL Albumin/Globulin Ratio (1.0-2.1) TSH 3rd Generation (0.46-4.68) mIU/ML Urine Color Straw (YELLOW) Urine Clarity Clear (Clear) Urine pH 6.0 (5.0-8.0) Ur Specific [place] 1.015 (1.003-1.030) Urine Protein Negative (NEGATIVE) mg/dL Urine Glucose (UA) Neg (Normal) mg/dL Urine Ketones Trace (NEGATIVE) mg/dL Urine Blood Negative (NEGATIVE) Urine Nitrate Negative (NEGATIVE) Urine Bilirubin Negative (NEGATIVE) Urine Urobilinogen 0.2-1.0 (0.2-1.0) mg/dL Ur Leukocyte Esterase Neg (Negative) Hilton/uL Urine RBC (Auto) < 1 (0-3) /hpf Urine Microscopic WBC < 1 (0-5) /hpf Ur Squamous Epith Cells < 1 (0-5) /hpf Laboratory Results - last 24 hr 04/02/17 04/02/17 04/02/17 09:30 14:20 14:30 WBC RBC Hgb Hct MCV MCH MCHC RDW Plt Count Neutrophils % (Manual) 79 H Band Neutrophils % 2 Lymphocytes % (Manual) 9 L Monocytes % (Manual) 9 Eosinophils % (Manual) 1 Platelet Estimate Slightly decreased L Large Platelets Present Hypochromasia (manual) Slight D-Dimer, Quantitative 279 H Sodium Potassium Chloride Carbon Dioxide Anion Gap BUN Creatinine Est GFR ( Amer) Est GFR (Non-Af Amer) Random Glucose Calcium Total Bilirubin AST ALT Alkaline Phosphatase Total Creatine Kinase Troponin I C-React Prot High Sens NT-Pro-B Natriuret Pep Total Protein Albumin Globulin Albumin/Globulin Ratio TSH 3rd Generation Urine Color Straw Urine Clarity Clear Urine pH 6.0 Ur Specific [place] 1.015 Urine Protein Negative Urine Glucose (UA) Neg Urine Ketones Trace Urine Blood Negative Urine Nitrate Negative Urine Bilirubin Negative Urine Urobilinogen 0.2-1.0 Ur Leukocyte Esterase Neg Urine RBC (Auto) < 1 Urine Microscopic WBC < 1 Ur Squamous Epith Cells < 1 04/02/17 04/02/17 04/02/17 14:30 14:30 22:32 WBC RBC Hgb Hct MCV MCH MCHC RDW Plt Count Neutrophils % (Manual) Band Neutrophils % Lymphocytes % (Manual) Monocytes % (Manual) Eosinophils % (Manual) Platelet Estimate Large Platelets Hypochromasia (manual) D-Dimer, Quantitative Sodium Potassium Chloride Carbon Dioxide Anion Gap BUN Creatinine Est GFR ( Amer) Est GFR (Non-Af Amer) Random Glucose Calcium Total Bilirubin AST ALT Alkaline Phosphatase Total Creatine Kinase 204 H Troponin I < 0.0120 < 0.0120 C-React Prot High Sens > 15.00 H NT-Pro-B Natriuret Pep 68.4 Total Protein Albumin Globulin Albumin/Globulin Ratio TSH 3rd Generation Urine Color Urine Clarity Urine pH Ur Specific [place] Urine Protein Urine Glucose (UA) Urine Ketones Urine Blood Urine Nitrate Urine Bilirubin Urine Urobilinogen Ur Leukocyte Esterase Urine RBC (Auto) Urine Microscopic WBC Ur Squamous Epith Cells 04/03/17 04/03/17 04:40 04:40 WBC 7.2 RBC 5.66 Hgb 15.8 Hct 48.4 MCV 85.5 MCH 28.0 MCHC 32.7 L RDW 16.0 H Plt Count 103 L Neutrophils % (Manual) Band Neutrophils % Lymphocytes % (Manual) Monocytes % (Manual) Eosinophils % (Manual) Platelet Estimate Large Platelets Hypochromasia (manual) D-Dimer, Quantitative Sodium 142 Potassium 4.1 Chloride 107 Carbon Dioxide 24 Anion Gap 15 BUN 18 Creatinine 0.8 Est GFR ( Amer) > 60 Est GFR (Non-Af Amer) > 60 Random Glucose 154 H Calcium 8.7 Total Bilirubin 0.3 AST 52 ALT 114 H Alkaline Phosphatase 64 Total Creatine Kinase Troponin I < 0.0120 C-React Prot High Sens NT-Pro-B Natriuret Pep Total Protein 7.2 Albumin 4.2 Globulin 3.0 Albumin/Globulin Ratio 1.4 TSH 3rd Generation 0.23 L Urine Color Urine Clarity Urine pH Ur Specific [place] Urine Protein Urine Glucose (UA) Urine Ketones Urine Blood Urine Nitrate Urine Bilirubin Urine Urobilinogen Ur Leukocyte Esterase Urine RBC (Auto) Urine Microscopic WBC Ur Squamous Epith Cells EKG/Cardiology Studies: Cardiology / EKG Studies 04/02/17 17:00 EKG [ELECTROCARDIOGRAM] Routine Comment: Mode Of Transportation: PORTABLE Reason For Exam: SOB Does Patient Have a Pacemaker?: No Critical Care Progress Note - Nutrition Nutrition: Nutrition Category Date Time Status Heart Healthy Diet [DIET] Diets 04/03/17 Lunch Active Assessment/Plan - Assessment and Plan (Free Text) Plan: -Dyspena: ACS (neg), resolved not dyspneic anymore -Cardiology eval: for stress testing -Pulmonary HTN: as seen on CT chest, obtain echo to check for pulmonary artery pressure -COPD: wll benefit from peak flow at bedside, patient strongly advised to stop smoking, continue duo nebs + solumedrol -h/o pre-diabetes: check HBA1C, BGM ACHS -DVT ppx : IV heparin -PUD rx with protonix/maalox -diet started heart healthy -Peak flow pre-and post nebulizers -Patient has normal respiration and remains hemodynamically stable. - Date & Time Date: 04/03/17 Time: 10:54
--- NOTE | 2017-04-03 11:54 | US ---
PROCEDURE: Bilateral lower extremity venous duplex Doppler. HISTORY: r/o DVT COMPARISON: None available. TECHNIQUE: Bilateral common femoral, superficial femoral, popliteal and posterior tibial veins were evaluated. Flow was assessed with color Doppler, compressibility, assessment of phasic flow and augmentation response. FINDINGS: COMMON FEMORAL VEIN: Right CFV: Unremarkable. Left CFV: Unremarkable. SUPERFICIAL FEMORAL VEIN: Right SFV: Unremarkable. Left SFV: Unremarkable. POPLITEAL VEIN: Right Popliteal: Unremarkable. Left Popliteal: Unremarkable. POSTERIOR TIBIAL VEIN: Right PTV: Unremarkable. Left PTV: Unremarkable. OTHER FINDINGS: None. IMPRESSION: No evidence of deep venous thrombosis.
[2017-04-03] MEDS: Albuterol-Ipratrop 3 mg / 0.5 (3 ml) UD INH SCH ×3 (14:01→19:32)
--- NOTE | 2017-04-03 20:47 | CON ---
DATE: HISTORY OF PRESENT ILLNESS: Mr. Troy is a 46-year-old male who was referred for pulmonary evaluation by Dr. Singh, who was admitted via the emergency room because of shortness of breath and progressive excessive intolerance. He indicates that symptoms started about 9 months prior to this presentation but worsened on the day of admission. He was seen in the emergency room and admitted to the Intensive Care Unit for therapy and workup. He denies chest pain, but indicates that he has had severe exertional dyspnea and he has gained at least 40 pounds in the past several months. He smokes cigarettes heavily and indicates he quit several months ago as soon as he has had problems with difficulty breathing. He has no real remarkable past medical history. FAMILY HISTORY: Noncontributory. SOCIAL HISTORY: He smokes 1 to 2 pack of cigarettes weekly. Denies alcohol use and works as a delivery driver. REVIEW OF SYSTEMS: Remarkable for shortness of breath, exercise intolerance, and chest tightness. PHYSICAL EXAMINATION: GENERAL: The patient is morbidly obese. VITAL SIGNS: Remarkable for blood pressure of 132/86 with a pulse of 93, respiratory rate 20 to 24 per minute, O2 sats 93% on room air. HEENT: Pupils are equal, reactive to light and accommodation. Mouth shows fair hygiene. NECK; JVP flat. LUNGS: Poor aeration bilateral with rales and wheezing. HEART: S1 and S2. ABDOMEN: Soft, nontender. No organomegaly. EXTREMITIES: Show no edema or cyanosis. CENTRAL NERVOUS SYSTEM: The patient is alert, oriented to person, place, and time. No gross deficits appreciated. DIAGNOSTIC DATA: Chest x-ray is remarkable for mild pulmonary congestion, otherwise unremarkable. EKG, sinus tachycardia, nonspecific ST-T changes. WBC 7.2, hemoglobin 15.8, platelet count 103,000. D-dimer 279. ABGs; pH 7.42, pCO2 of 33, pO2 of 67, O2 sat 97.1; this is on 47% FiO2. Sodium 142, potassium 4.1, BUN 18, creatinine 0.8. Troponin 0.012, proBNP 33. CT scan of the chest remarkable for acute pulmonary emboli right upper lobe subsegmental atelectasis. IMPRESSION: Respiratory insufficiency, probably secondary to acute exacerbation of chronic obstructive pulmonary disease in a patient who is a chronic smoker, one has to rule out cardiac etiology including mild congestive heart failure, coronary artery disease. Morbid obesity with obesity-hypoventilation syndrome. PLAN: Continue aerosolized bronchodilators. Continue oxygenation. One suggests cardiac evaluation. Empiric antibiotic therapy already ordered. Septic workup also already ordered. We will continue to follow with you. Further therapy will depend on findings. Alexandru Mistry MD
[2017-04-04] MEDS: Albuterol-Ipratrop 3 mg / 0.5 (3 ml) UD INH SCH ×5 (01:16→19:41)
[2017-04-04 05:53] LABS: HEMATOCRIT 48.7 % (35.0-51.0); MEAN CELL VOLUME 86.3 fl (80.0-94.0); MEAN CORPUSCULAR HGB CONC 32.4 g/dL (33.0-37.0); RED CELL DISTRIBUTION WIDTH 15.9 % (11.5-14.5); WHITE BLOOD COUNT 11.8 K/uL (4.8-10.8)
[2017-04-04 06:20] LABS: ALB/GLOB RATIO 1.3 (1.0-2.1); ALKALINE PHOSPHATASE 63 U/L (38-126); ALT/SGPT 125 U/L (21-72); AST/SGOT 46 U/L (17-59); BILIRUBIN,TOTAL 0.2 mg/dl (0.2-1.3); BLOOD UREA NITROGEN 17 mg/dl (9-20); CALCIUM 8.4 mg/dL (8.4-10.2); CARBON DIOXIDE 28 mmol/L (22-30); CHLORIDE 105 mmol/L (98-107); GFR AFRICAN-AMERICAN > 60; GLUCOSE,RANDOM 170 mg/dL (75-110); POTASSIUM 4.2 MMOL/L (3.6-5.0); SODIUM 141 mmol/l (132-148); TOTAL PROTEIN 6.8 G/DL (6.3-8.2)
[2017-04-04 06:33] LABS: T4 6.66 ug/dl (5.5-11.0)
--- NOTE | 2017-04-04 08:24 | CP.PCM.PN ---
<Génesis Ware - Last Filed: 04/04/17 12:15> Subjective - Date & Time of Evaluation Date of Evaluation: 04/04/17 Time of Evaluation: 08:00 - Subjective Subjective: Patient seen and evaluated at bedside this morning. Tolerated BIPAP well overnight. No acute events overnight. Has nonproductive cough, exacerbated by trying to take deep breaths. Will have echocardiogram today. Denies chest pain, increased sob, abdominal pain/discomfort, calf pain/swelling. Objective - Vital Signs/Intake and Output Vital Signs (last 24 hours): Temp Pulse Resp BP Pulse Ox 98.1 F 68 18 109/72 98 04/04/17 05:17 04/04/17 05:17 04/04/17 05:17 04/04/17 05:17 04/04/17 05:17 - Medications Medications: Current Medications Acetaminophen (Tylenol 325mg Tab) 650 mg PO Q6 PRN PRN Reason: Pain, moderate (4-7) Last Admin: 04/02/17 20:40 Dose: 650 mg Al Hydrox/Mg Hydrox/Simethicone (Maalox Plus 30 Ml) 30 ml PO Q6 PRN PRN Reason: Indigestion / Heartburn Albuterol/Ipratropium (Duoneb 3 Mg/0.5 Mg (3 Ml) Ud) 3 ml INH Q6H [facility] Last Admin: 04/04/17 07:57 Dose: 3 ml Aspirin (Aspirin) 325 mg PO DAILY [facility] Last Admin: 04/03/17 10:39 Dose: 325 mg Azithromycin 500 mg/ Sodium (Chloride) 250 mls @ 250 mls/hr IVPB DAILY [facility] PRN Reason: Protocol Last Admin: 04/02/17 19:01 Dose: 250 mls/hr Ceftriaxone Sodium 1 gm/ (Sodium Chloride) 100 mls @ 100 mls/hr IVPB DAILY [facility] PRN Reason: Protocol Last Admin: 04/02/17 20:05 Dose: 100 mls/hr Methylprednisolone (Solu-Medrol) 60 mg IV Q12H [facility] Last Admin: 04/03/17 23:08 Dose: 60 mg Pantoprazole Sodium (Protonix Ec Tab) 40 mg PO DAILY [facility] Last Admin: 04/03/17 10:39 Dose: 40 mg - Labs Labs: 04/04/17 04:20 04/04/17 04:20 PT 12.8 Seconds (9.8-13.1) 04/02/17 09:30 INR 1.2 (0.9-1.2) 04/02/17 09:30 APTT 32.9 Seconds (25.6-37.1) 04/02/17 09:30 - Constitutional Appears: Non-toxic - Head Exam Head Exam: ATRAUMATIC, NORMOCEPHALIC - Eye Exam Eye Exam: EOMI, Normal appearance - Respiratory Exam Respiratory Exam: Wheezes. absent: Respiratory Distress Additional comments: wheezes bilaterally, improving. - Cardiovascular Exam Cardiovascular Exam: REGULAR RHYTHM, +S1, +S2 - GI/Abdominal Exam GI & Abdominal Exam: Soft, Normal Bowel Sounds - Extremities Exam Extremities Exam: Normal Capillary Refill, Normal Inspection. absent: Calf Tenderness, Pedal Edema - Back Exam Back Exam: NORMAL INSPECTION - Neurological Exam Neurological Exam: Alert, Awake, Oriented x3 - Skin Skin Exam: Dry, Intact Assessment and Plan - Assessment and Plan (Free Text) Assessment: 46 yo M, admitted for new onset COPD exacerbation; tolerating BIPAP at night and on O2 via nasal canula during the day. Improving. Pt is also being followed by cardiology and pulmonology services. Plan: 1) Respiratory distress likely secondary to COPD exacerbation - Likely new onset COPD - Bipap at night - Ceftriazone 1gm IVPB daily - held - Azythromycin 500 mg IVPB daily - held - Methylprednisone 60 mg IV Q12 hours; received 125 mg IV methylprednisone in ED - Duoneb Q6H - ICU consult appreciated - Cardiology consult: Severe effort intolerance (suspect pulmonary insufficiency ). Congestive cardiac failure or other cardiac issues should be ruled out. There is no evidence of acute coronary syndrome given his history of gradually worsening effort tolerance and absence of ST-T abnormalities on the electrocardiogram as well as normal troponin levels. - Pulmonology consult: Respiratory insufficiency, probably secondary to acute exacerbation of chronic obstructive pulmonary disease. Rule out cardiac etiology , CHF, CAD. Morbid obesity with obesity-hypoventilation syndrome. Continue aerosolized bronchodilators, continue oxygenation. Empiric antibiotic therapy already ordered, septic workup already ordered. - Urine culture neg, blood cultures neg after 48 hrs - Elevated WBC likely due to steroid use 2) COPD exacerbation -see #1 3) Chest Pain - R/o ACS, PE - Troponin neg x4 - CXR: Prominence of the pulmonary vasculature may be secondary to AP technique and /or pulmonary vascular congestion. no focal consolidation of pleural effusion. - CT chest: unremarkable CT pulmonary angiogram. No pulmonary embolus. - EKG: old myocardial infarction, sinus tachycardia - ProBNP normal - Echocardiogram pending - D-dimer elevated, lower limbs venous US pending 4) Thrombocytopenia - Plt 134 today; was 96 on admission - F/u CBC 5) Prediabetes - HbA1c 5.7 in 11/2016 6) DVT prophylaxis -SCD due to thrombocytopenia on admission <Shoshana Nguyễn - Last Filed: 04/04/17 13:42> Objective - Vital Signs/Intake and Output Vital Signs (last 24 hours): Temp Pulse Resp BP Pulse Ox 97.3 F L 78 18 126/79 95 04/04/17 12:38 04/04/17 12:38 04/04/17 12:38 04/04/17 12:38 04/04/17 12:38 - Medications Medications: Current Medications Acetaminophen (Tylenol 325mg Tab) 650 mg PO Q6 PRN PRN Reason: Pain, moderate (4-7) Last Admin: 04/02/17 20:40 Dose: 650 mg Al Hydrox/Mg Hydrox/Simethicone (Maalox Plus 30 Ml) 30 ml PO Q6 PRN PRN Reason: Indigestion / Heartburn Albuterol/Ipratropium (Duoneb 3 Mg/0.5 Mg (3 Ml) Ud) 3 ml INH Q6H [facility] Last Admin: 04/04/17 07:57 Dose: 3 ml Aspirin (Aspirin) 325 mg PO DAILY [facility] Last Admin: 04/04/17 09:14 Dose: 325 mg Azithromycin 500 mg/ Sodium (Chloride) 250 mls @ 250 mls/hr IVPB DAILY [facility] PRN Reason: Protocol Last Admin: 04/02/17 19:01 Dose: 250 mls/hr Ceftriaxone Sodium 1 gm/ (Sodium Chloride) 100 mls @ 100 mls/hr IVPB DAILY [facility] PRN Reason: Protocol Last Admin: 04/02/17 20:05 Dose: 100 mls/hr Methylprednisolone (Solu-Medrol) 60 mg IV Q12H [facility] Last Admin: 04/04/17 11:15 Dose: 60 mg Pantoprazole Sodium (Protonix Ec Tab) 40 mg PO DAILY [facility] Last Admin: 04/04/17 09:12 Dose: 40 mg Sodium Phosphate (Potassium/Sodium Phosphate) 500 mg PO DAILY [facility] Last Admin: 04/04/17 10:30 Dose: 500 mg - Labs Labs: 04/04/17 04:20 04/04/17 04:20 PT 12.8 Seconds (9.8-13.1) 04/02/17 09:30 INR 1.2 (0.9-1.2) 04/02/17 09:30 APTT 32.9 Seconds (25.6-37.1) 04/02/17 09:30 Attending/Attestation - Attestation I have personally seen and examined this patient.: Yes I have fully participated in the care of the patient.: Yes I have reviewed all pertinent clinical information, including history, physical exam and plan: Yes Notes (Text): 04/04/17 13:40 Attending note - Attestation statement Patient seen and examined. still with scattered exp wheeze, but improved air exchange. Echo done results pending. Continue RX. Discussed with resident. Agree with findings and plan.
--- NOTE | 2017-04-04 09:10 | CP.PCM.PN ---
Subjective - Date & Time of Evaluation Date of Evaluation: 04/04/17 Time of Evaluation: 09:11 - Subjective Subjective: STILL COUGHING SOB IMPROVING NO CHEST PAINS Objective - Vital Signs/Intake and Output Vital Signs (last 24 hours): Temp Pulse Resp BP Pulse Ox 97.3 F L 96 H 18 147/90 93 L 04/04/17 08:19 04/04/17 08:19 04/04/17 08:19 04/04/17 08:19 04/04/17 08:19 - Medications Medications: Current Medications Acetaminophen (Tylenol 325mg Tab) 650 mg PO Q6 PRN PRN Reason: Pain, moderate (4-7) Last Admin: 04/02/17 20:40 Dose: 650 mg Al Hydrox/Mg Hydrox/Simethicone (Maalox Plus 30 Ml) 30 ml PO Q6 PRN PRN Reason: Indigestion / Heartburn Albuterol/Ipratropium (Duoneb 3 Mg/0.5 Mg (3 Ml) Ud) 3 ml INH Q6H [facility] Last Admin: 04/04/17 07:57 Dose: 3 ml Aspirin (Aspirin) 325 mg PO DAILY [facility] Last Admin: 04/03/17 10:39 Dose: 325 mg Azithromycin 500 mg/ Sodium (Chloride) 250 mls @ 250 mls/hr IVPB DAILY [facility] PRN Reason: Protocol Last Admin: 04/02/17 19:01 Dose: 250 mls/hr Ceftriaxone Sodium 1 gm/ (Sodium Chloride) 100 mls @ 100 mls/hr IVPB DAILY [facility] PRN Reason: Protocol Last Admin: 04/02/17 20:05 Dose: 100 mls/hr Methylprednisolone (Solu-Medrol) 60 mg IV Q12H [facility] Last Admin: 04/03/17 23:08 Dose: 60 mg Pantoprazole Sodium (Protonix Ec Tab) 40 mg PO DAILY [facility] Last Admin: 04/03/17 10:39 Dose: 40 mg Sodium Phosphate (Potassium/Sodium Phosphate) 500 mg PO DAILY [facility] - Labs Labs: 04/04/17 04:20 04/04/17 04:20 PT 12.8 Seconds (9.8-13.1) 04/02/17 09:30 INR 1.2 (0.9-1.2) 04/02/17 09:30 APTT 32.9 Seconds (25.6-37.1) 04/02/17 09:30 - Constitutional Appears: Chronically Ill - Head Exam Head Exam: ATRAUMATIC, NORMAL INSPECTION, NORMOCEPHALIC - Eye Exam Eye Exam: EOMI, Normal appearance, PERRL Pupil Exam: NORMAL ACCOMODATION, PERRL - ENT Exam ENT Exam: Mucous Membranes Moist, Normal Exam - Neck Exam Neck Exam: Full ROM, Normal Inspection. absent: Lymphadenopathy - Respiratory Exam Respiratory Exam: Decreased Breath Sounds, Prolonged Expiratory Phase, Rales, Wheezes, NORMAL BREATHING PATTERN - Cardiovascular Exam Cardiovascular Exam: REGULAR RHYTHM, +S1, +S2. absent: Murmur - GI/Abdominal Exam GI & Abdominal Exam: Soft, Normal Bowel Sounds. absent: Tenderness - Rectal Exam Rectal Exam: NORMAL INSPECTION - Extremities Exam Extremities Exam: Full ROM, Normal Capillary Refill, Normal Inspection. absent : Joint Swelling, Pedal Edema - Back Exam Back Exam: NORMAL INSPECTION - Neurological Exam Neurological Exam: Alert, Awake, CN II-XII Intact, Normal Gait, Oriented x3 - Psychiatric Exam Psychiatric exam: Normal Affect, Normal Mood - Skin Skin Exam: Dry, Intact, Normal Color, Warm Assessment and Plan - Assessment and Plan (Free Text) Assessment: COPD EXAC Plan: CONTINUE PRESENT RX BIPAP AT BEDTIME ABGS IN AM
[2017-04-04] MEDS: Pantoprazole 40 mg EC Tab PO SCH (09:12)
--- NOTE | 2017-04-04 09:25 | CP.PCM.PN ---
Subjective - Date & Time of Evaluation Date of Evaluation: 04/04/17 Time of Evaluation: 09:00 - Subjective Subjective: Still continues to cough (scanty expectorate) Afebrile Sat OOB and ambulated to the BR without dyspnoea HR 80 BPM BP 122/70 mm Hg No rales, no gallop Will have an echocardiogram today. Objective - Vital Signs/Intake and Output Vital Signs (last 24 hours): Temp Pulse Resp BP Pulse Ox 97.3 F L 96 H 18 147/90 93 L 04/04/17 08:19 04/04/17 08:19 04/04/17 08:19 04/04/17 08:19 04/04/17 08:19 - Medications Medications: Current Medications Acetaminophen (Tylenol 325mg Tab) 650 mg PO Q6 PRN PRN Reason: Pain, moderate (4-7) Last Admin: 04/02/17 20:40 Dose: 650 mg Al Hydrox/Mg Hydrox/Simethicone (Maalox Plus 30 Ml) 30 ml PO Q6 PRN PRN Reason: Indigestion / Heartburn Albuterol/Ipratropium (Duoneb 3 Mg/0.5 Mg (3 Ml) Ud) 3 ml INH Q6H [facility] Last Admin: 04/04/17 07:57 Dose: 3 ml Aspirin (Aspirin) 325 mg PO DAILY [facility] Last Admin: 04/04/17 09:14 Dose: 325 mg Azithromycin 500 mg/ Sodium (Chloride) 250 mls @ 250 mls/hr IVPB DAILY [facility] PRN Reason: Protocol Last Admin: 04/02/17 19:01 Dose: 250 mls/hr Ceftriaxone Sodium 1 gm/ (Sodium Chloride) 100 mls @ 100 mls/hr IVPB DAILY [facility] PRN Reason: Protocol Last Admin: 04/02/17 20:05 Dose: 100 mls/hr Methylprednisolone (Solu-Medrol) 60 mg IV Q12H [facility] Last Admin: 04/03/17 23:08 Dose: 60 mg Pantoprazole Sodium (Protonix Ec Tab) 40 mg PO DAILY [facility] Last Admin: 04/04/17 09:12 Dose: 40 mg Sodium Phosphate (Potassium/Sodium Phosphate) 500 mg PO DAILY [facility] - Labs Labs: 04/04/17 04:20 04/04/17 04:20 PT 12.8 Seconds (9.8-13.1) 04/02/17 09:30 INR 1.2 (0.9-1.2) 04/02/17 09:30 APTT 32.9 Seconds (25.6-37.1) 04/02/17 09:30
--- NOTE | 2017-04-04 12:39 | CARD ---
APPROVED REPORT EXAM: Two-dimensional and M-mode echocardiogram with Doppler and color Doppler. Other Information Quality : AverageRhythm : NSR INDICATION Congestive Heart Failure 2D DIMENSIONS IVSd1.12 (0.7-1.1cm)LVDd4.40 (3.9-5.9cm) LVOT Diameter2.28 (1.8-2.4cm)PWd0.78 (0.7-1.1cm) IVSs1.59 (0.8-1.2cm)LVDs2.81 (2.5-4.0cm) FS (%) 36.1 %PWs1.12 (0.8-1.2cm) M-Mode DIMENSIONS Left Atrium (MM)4.23 (2.5-4.0cm)IVSd1.36 (0.7-1.1cm) Aortic Root3.95 (2.2-3.7cm)LVDd4.82 (4.0-5.6cm) Aortic Cusp Exc.2.06 (1.5-2.0cm)PWd1.08 (0.7-1.1cm) IVSs1.75 cmFS (%) 49 % LVDs2.44 (2.0-3.8cm)PWs1.92 cm Mitral Valve MV E Gwqzzeom70.3cm/sMV DECEL [id number] A Guizvlbl97.5cm/s MV AHN76svA/A ratio1.6MVA (PHT)2.77cm2 TDI Lateral E' Peak V11.65cm/sMedial E' Peak V10.43cm/sE/Lateral E'5.4 E/Medial E'6.1 Pulmonary Valve PV Peak Leeennuo034.8cm/s LEFT VENTRICLE The left ventricle is normal size. There is normal left ventricular wall thickness. Left ventricle systolic function is normal. The Ejection Fraction is >70%. There is normal LV segmental wall motion. The left ventricular diastolic function is normal. RIGHT VENTRICLE The right ventricle is normal size. There is normal right ventricular wall thickness. The right ventricular systolic function is normal. ATRIA The left atrium size is normal. The right atrium size is normal. AORTIC VALVE The aortic valve is normal in structure. No aortic regurgitation is present. There is no aortic valvular stenosis. MITRAL VALVE The mitral valve is normal in structure. There is no evidence of mitral valve prolapse. There is no mitral valve stenosis. There is no mitral valve regurgitation noted. TRICUSPID VALVE The tricuspid valve is normal in structure. There is no tricuspid valve regurgitation noted. PULMONIC VALVE The pulmonary valve is normal in structure. There is no pulmonic valvular regurgitation. GREAT VESSELS The aortic root is normal in size. The IVC is normal in size and collapses >50% with inspiration. PERICARDIAL EFFUSION The pericardium appears normal. <Conclusion> The left ventricle is normal size. There is normal left ventricular wall thickness. There is normal LV segmental wall motion. Left ventricle systolic function is normal. The Ejection Fraction is >70%. The left ventricular diastolic function is normal.
[2017-04-04 16:55] LABS: FT3 2.88 pg/mL (2.77-5.27)
[2017-04-05] MEDS: Albuterol-Ipratrop 3 mg / 0.5 (3 ml) UD INH SCH ×3 (01:09→13:11)
[2017-04-05 05:57] LABS: HEMATOCRIT 47.7 % (35.0-51.0); MEAN CELL VOLUME 85.9 fl (80.0-94.0); MEAN CORPUSCULAR HGB CONC 32.6 g/dL (33.0-37.0); RED CELL DISTRIBUTION WIDTH 16.1 % (11.5-14.5)
[2017-04-05 06:07] LABS: POTASSIUM 4.1 MMOL/L (3.6-5.0)
[2017-04-05 06:12] LABS: ALB/GLOB RATIO 1.3 (1.0-2.1); ALKALINE PHOSPHATASE 59 U/L (38-126); ALT/SGPT 107 U/L (21-72); AST/SGOT 30 U/L (17-59); BILIRUBIN,TOTAL 0.2 mg/dl (0.2-1.3); BLOOD UREA NITROGEN 16 mg/dl (9-20); CALCIUM 8.4 mg/dL (8.4-10.2); CARBON DIOXIDE 28 mmol/L (22-30); CHLORIDE 104 mmol/L (98-107); GFR AFRICAN-AMERICAN > 60; GLUCOSE,RANDOM 156 mg/dL (75-110); SODIUM 142 mmol/l (132-148); TOTAL PROTEIN 6.6 G/DL (6.3-8.2)
[2017-04-05 06:33] VITALS: O2SAT 94
[2017-04-05 08:18] VITALS: RESP 20
--- NOTE | 2017-04-05 09:03 | CP.PCM.DIS ---
Provider - Provider Date of Admission: 04/02/17 12:32 Attending physician: Mikki Singh MD Primary care physician: [facility]: Dr. Dawson Consults: Pulmonology Cardiology Time Spent in preparation of Discharge (in minutes): 30 Diagnosis - Discharge Diagnosis (1) COPD (chronic obstructive pulmonary disease) Status: Acute Comment: new onset Hospital Course - Lab Results Lab Results: Micro Results 04/02/17 17:35 Naris MRSA Culture (Admit) - Final MRSA NOT DETECTED 04/03/17 17:50 Nose MRSA Culture (Admit) - Final MRSA NOT DETECTED 04/02/17 09:15 Blood Blood Culture - Preliminary NO GROWTH AFTER 48 HOURS 04/02/17 09:30 Blood Blood Culture - Preliminary NO GROWTH AFTER 48 HOURS 04/03/17 16:30 Sputum Gram Stain - Final 04/03/17 16:30 Sputum Sputum Culture - Final 04/02/17 14:30 Urine,Clean Catch Urine Culture - Final No Growth (<1,000 CFU/ML) Most Recent Lab Values WBC 10.0 K/uL (4.8-10.8) 04/05/17 05:00 RBC 5.56 Mil/uL (4.40-5.90) 04/05/17 05:00 Hgb 15.6 g/dL (12.0-18.0) 04/05/17 05:00 Hct 47.7 % (35.0-51.0) 04/05/17 05:00 MCV 85.9 fl (80.0-94.0) 04/05/17 05:00 MCH 28.0 pg (27.0-31.0) 04/05/17 05:00 MCHC 32.6 g/dL (33.0-37.0) L 04/05/17 05:00 RDW 16.1 % (11.5-14.5) H 04/05/17 05:00 Plt Count 167 K/uL (130-400) 04/05/17 05:00 MPV 8.7 fl (7.2-11.7) 04/02/17 09:30 Neut % (Auto) 86.6 % (50.0-75.0) H 04/02/17 09:30 Lymph % (Auto) 4.8 % (20.0-40.0) L 04/02/17 09:30 Bowie % (Auto) 7.8 % (0.0-10.0) 04/02/17 09:30 Eos % (Auto) 0.6 % (0.0-4.0) 04/02/17 09:30 Baso % (Auto) 0.2 % (0.0-2.0) 04/02/17 09:30 Neut # 8.3 K/uL (1.8-7.0) H 04/02/17 09:30 Lymph # 0.5 K/uL (1.0-4.3) L 04/02/17 09:30 Bowie # 0.7 K/uL (0.0-0.8) 04/02/17 09:30 Eos # 0.1 K/uL (0.0-0.7) 04/02/17 09:30 Baso # 0.0 K/uL (0.0-0.2) 04/02/17 09:30 Neutrophils % (Manual) 79 % (42-75) H 04/02/17 09:30 Band Neutrophils % 2 % (0-2) 04/02/17 09:30 Lymphocytes % (Manual) 9 % (20-50) L 04/02/17 09:30 Monocytes % (Manual) 9 % (0-10) 04/02/17 09:30 Eosinophils % (Manual) 1 % (0-7) 04/02/17 09:30 Platelet Estimate Slightly decreased (NORMAL) L 04/02/17 09:30 Large Platelets Present 04/02/17 09:30 Hypochromasia (manual) Slight 04/02/17 09:30 PT 12.8 Seconds (9.8-13.1) 04/02/17 09:30 INR 1.2 (0.9-1.2) 04/02/17 09:30 APTT 32.9 Seconds (25.6-37.1) 04/02/17 09:30 D-Dimer, Quantitative 279 ng/mlDDU (0-230) H 04/02/17 14:30 pCO2 33 mm/Hg (35-45) L 04/02/17 09:26 pO2 67 mm/Hg (80-100) L 04/02/17 09:26 HCO3 23.0 mmol/L (21-28) 04/02/17 09:26 ABG pH 7.42 (7.35-7.45) 04/02/17 09:26 ABG Total CO2 22.4 mmol/L (22-28) 04/02/17 09:26 ABG O2 Saturation 97.1 % (95-98) 04/02/17 09:26 ABG Base Excess -2.3 mmol/L (-2.0-3.0) L 04/02/17 09:26 Johnson Test Yes 04/02/17 09:26 ABG Potassium 4.2 mmol/L (3.6-5.2) 04/02/17 09:26 A-a O2 Difference 227.0 mm/Hg 04/02/17 09:26 Sodium 142.0 mmol/L (132-148) 04/02/17 09:26 Chloride 109.0 mmol/L (98-107) H 04/02/17 09:26 Glucose 122 mg/dL (75-110) H 04/02/17 09:26 Lactate 0.9 mmol/L (0.7-2.1) 04/02/17 09:26 FiO2 47.0 % 04/02/17 09:26 Sodium 142 mmol/l (132-148) 04/05/17 05:00 Potassium 4.1 MMOL/L (3.6-5.0) 04/05/17 05:00 Chloride 104 mmol/L (98-107) 04/05/17 05:00 Carbon Dioxide 28 mmol/L (22-30) 04/05/17 05:00 Anion Gap 14 (10-20) 04/05/17 05:00 BUN 16 mg/dl (9-20) 04/05/17 05:00 Creatinine 0.8 mg/dl (0.8-1.5) 04/05/17 05:00 Est GFR ( Amer) > 60 04/05/17 05:00 Est GFR (Non-Af Amer) > 60 04/05/17 05:00 Random Glucose 156 mg/dL (75-110) H 04/05/17 05:00 Calcium 8.4 mg/dL (8.4-10.2) 04/05/17 05:00 Phosphorus 2.3 mg/dl (2.5-4.5) L 04/02/17 09:30 Magnesium 2.1 MG/DL (1.6-2.3) 04/02/17 09:30 Total Bilirubin 0.2 mg/dl (0.2-1.3) 04/05/17 05:00 AST 30 U/L (17-59) 04/05/17 05:00 ALT 107 U/L (21-72) H 04/05/17 05:00 Alkaline Phosphatase 59 U/L (38-126) 04/05/17 05:00 Total Creatine Kinase 204 U/L (55-170) H 04/02/17 14:30 Troponin I < 0.0120 ng/mL (0.00-0.120) 04/03/17 04:40 C-React Prot High Sens > 15.00 mg/L (1.00-3.00) H 04/02/17 14:30 NT-Pro-B Natriuret Pep 68.4 pg/ml (0-450) 04/02/17 14:30 Total Protein 6.6 G/DL (6.3-8.2) 04/05/17 05:00 Albumin 3.8 g/dL (3.5-5.0) 04/05/17 05:00 Globulin 2.9 gm/dL (2.2-3.9) 04/05/17 05:00 Albumin/Globulin Ratio 1.3 (1.0-2.1) 04/05/17 05:00 Free T4 0.96 ng/dL (0.78-2.19) 04/04/17 04:20 Thyroxine (T4) 6.66 ug/dl (5.5-11.0) 04/04/17 04:20 Free T3 pg/mL 2.88 pg/mL (2.77-5.27) 04/04/17 04:20 Total T3 0.762 nmol/L (1.49-2.60) L 04/04/17 04:20 TSH 3rd Generation 0.23 mIU/ML (0.46-4.68) L 04/03/17 04:40 Arterial Blood Potassium 4.2 mmol/L (3.6-5.2) 04/02/17 09:26 Urine Color Straw (YELLOW) 04/02/17 14:20 Urine Clarity Clear (Clear) 04/02/17 14:20 Urine pH 6.0 (5.0-8.0) 04/02/17 14:20 Ur Specific [place] 1.015 (1.003-1.030) 04/02/17 14:20 Urine Protein Negative mg/dL (NEGATIVE) 04/02/17 14:20 Urine Glucose (UA) Neg mg/dL (Normal) 04/02/17 14:20 Urine Ketones Trace mg/dL (NEGATIVE) 04/02/17 14:20 Urine Blood Negative (NEGATIVE) 04/02/17 14:20 Urine Nitrate Negative (NEGATIVE) 04/02/17 14:20 Urine Bilirubin Negative (NEGATIVE) 04/02/17 14:20 Urine Urobilinogen 0.2-1.0 mg/dL (0.2-1.0) 04/02/17 14:20 Ur Leukocyte Esterase Neg [place]/uL (Negative) 04/02/17 14:20 Urine RBC (Auto) < 1 /hpf (0-3) 04/02/17 14:20 Urine Microscopic WBC < 1 /hpf (0-5) 04/02/17 14:20 Ur Squamous Epith Cells < 1 /hpf (0-5) 04/02/17 14:20 - Hospital Course Hospital Course: 46 yo M with migraine, obesity, GERD, gastric ulcer presented to ED with shortness of breath, and was admitted with new onset COPD and respiratory insufficiency. Cardiology and pulmonology were consulted. Echocardiogram was done and showed normal ventricular function and EF > 70%. Chest CT showed no evidence of PE, and lower extremity doppler showed no evidence of DVT. Pt was treated with methylprednisone, duonebs, and BIPAP for overnights. Urine culture and blood cultures showed no growth for the duration of the hospital stay. Due to COPD and hypoxia related symptoms, a six-minute walk test revealed that the patient desaturates to 88% during the test; case management setting up home oxygen for patient. He will be discharged with the following prescriptions: Levofloxacin 750 mg PO x 3 days Prednisone 50 mg PO x 3 days Spiriva 18mcg INH daily x 30 days Albuterol HFA60/Ventolin HFA 90, INH 2 puffs Q6 PRN He has a follow up appt with Dr. Ware on 04/11/2017 at [facility]. Discharge Exam - Head Exam Head Exam: ATRAUMATIC, NORMOCEPHALIC - Eye Exam Eye Exam: EOMI, Normal appearance - ENT Exam ENT Exam: Mucous Membranes Moist - Respiratory Exam Respiratory Exam: NORMAL BREATHING PATTERN. absent: Respiratory Distress Additional comments: improved wheezes - Cardiovascular Exam Cardiovascular Exam: REGULAR RHYTHM, +S1, +S2 - GI/Abdominal Exam GI & Abdominal Exam: Normal Bowel Sounds, Soft - Extremities Exam Extremities exam: full ROM, normal inspection - Back Exam Back exam: NORMAL INSPECTION - Neurological Exam Neurological exam: Alert, Oriented x3 - Skin Skin Exam: Dry, Warm Discharge Plan - Discharge Medications Prescriptions: Albuterol HFA [Ventolin HFA 90 mcg/actuation (8 g)] 2 puff IH [id number] 30 Days puff levoFLOXacin [Levaquin] 750 mg PO DAILY 3 Days tab Prednisone 50 mg PO DAILY 5 Days tablet Tiotropium [Spiriva] 18 mcg IH DAILY 30 Days cap - Follow Up Plan Condition: FAIR Disposition: HOME/ ROUTINE Instructions: COPD (Chronic Obstructive Pulmonary Disease) (DC) Additional Instructions: Please take medications as prescribed Levofloxacin 750 mg by mouth x 3 days Prednisone 50 mg by mouth x 3 days Inhalers: Spiriva (Tiotropium) inhaler, one puff daily for 30 days Albuterol/Ventolin inhaler, 2 puffs as needed as often as every 6 hours. You have a follow up appt with Dr. Ware at [facility] at [address] [place] [address] on 04/11/2017 at 3:00 pm Please return to ED if you have worsening shortness of breath and/or chest pain.
--- NOTE | 2017-04-05 09:17 | CARD ---
APPROVED REPORT EKG Measurement Heart [id number] CT [id number] <Conclusion> Sinus tachycardia Nonspecific T wave abnormality Abnormal ECG
--- NOTE | 2017-04-05 09:18 | CARD ---
APPROVED REPORT EKG Measurement Heart [id number] [place] [id number] <Conclusion> Sinus tachycardia Left axis deviation Cannot rule out Inferior infarct, age undetermined Abnormal ECG
[2017-04-05] MEDS: Pantoprazole 40 mg EC Tab PO SCH (09:31)
[2017-04-05 12:55] VITALS: BP 145/67; PULSE 90; TEMP 97.9
== END 2017-04-05 16:05 | disposition home or self-care (01) | DRG 88 ==
LOC: H.ER 09:07 → H.ERHOLD 12:32 → H.ICU/CCU 16:37 → H.TEL 04-03 17:39
PROVIDERS: ADMIT Family Medicine Geriatric Medicine; ATTEND Family Medicine Geriatric Medicine
PROC: 3E0F7GC Introduction of Other Therapeutic Substance into Respiratory Tract, Via Natural or Artificial Opening (ICD-10-PCS; 2017-04-02)
PROC: 5A09357 Assistance with Respiratory Ventilation, Less than 24 Consecutive Hours, Continuous Positive Airway Pressure (ICD-10-PCS; principal; 2017-04-03)
DX: J44.1 Chronic obstructive pulmonary disease with (acute) exacerbation (principal); I27.20 Pulmonary hypertension, unspecified; R09.02 Hypoxemia; D69.6 Thrombocytopenia, unspecified; E66.2 Morbid (severe) obesity with alveolar hypoventilation; G43.909 Migraine, unspecified, not intractable, without status migrainosus; K21.9 Gastro-esophageal reflux disease without esophagitis; R73.03 Prediabetes; K25.9 Gastric ulcer, unspecified as acute or chronic, without hemorrhage or perforation; Z87.11 Personal history of peptic ulcer disease; F17.210 Nicotine dependence, cigarettes, uncomplicated